=== PATIENT | female | born 1945 | race Caucasian/White ===

== ENCOUNTER 2017-12-18 13:43 | Outpatient (CLI) | payer MEDICARE | END 2017-12-18 13:44 | disposition home or self-care (01) | LOC: BICMAMMO 13:43 | PROVIDERS: ATTEND Internal Medicine Rheumatology | DX: M81.0 Age-related osteoporosis without current pathological fracture (principal) | CPT/HCPCS: 77063; 77067; 77080 ==

== ENCOUNTER 2017-12-27 19:50 | Emergency (ER) | payer MEDICARE ==
--- NOTE | 2017-12-27 20:37 | RAD ---
LEFT HIP: 12/27/17 Two views. HISTORY: Fall with injury to hip. Comparison made to left hip films of 01/16/16. The left hip prosthesis is unchanged from the prior exam. No evidence of loosening. No acute fracture identified. IMPRESSION: No acute abnormality. POS: NILAY
[2017-12-27] MEDS ORDERED: Ondansetron HCl/PF 4 MG/2 ML Vial ONE (22:55)
[2017-12-27] MEDS ORDERED: Morphine 4 MG/ML VIAL ONE (22:56)
--- NOTE | 2017-12-27 23:33 | CT ---
CT LEFT HIP: 12/27/17 Multiple axial tomograms obtained through the left hip with multiplanar reconstruction. HISTORY: Patient well with injury to left hip. Left hip pain. History of left hip replacement. Left hip prosthetic components appear in adequate position and alignment. No evidence of acute fractu re identified. No soft tissue abnormality. Marion artifact from the components degrade the soft tissue windows. IMPRESSION: No acute fracture identified. POS: NILAY
== END 2017-12-27 23:50 | disposition home or self-care (01) ==
LOC: ERS 19:50
DX: S70.02XA Contusion of left hip, initial encounter (principal); I10 Essential (primary) hypertension; Z87.891 Personal history of nicotine dependence; W01.0XXA Fall on same level from slipping, tripping and stumbling without subsequent striking against object, initial encounter
CPT/HCPCS: 96374; 96375; J2270; J2405

== ENCOUNTER 2018-05-01 16:33 | Outpatient (CLI) | payer MEDICARE | END 2018-05-01 16:34 | disposition home or self-care (01) | LOC: BICRAD 16:33 | PROVIDERS: ATTEND Specialist | DX: J44.9 Chronic obstructive pulmonary disease, unspecified (principal) | CPT/HCPCS: 71046 ==

== ENCOUNTER 2019-01-25 13:14 | Outpatient (CLI) | payer MEDICARE ==
--- NOTE | 2019-01-25 14:20 | MMO ---
Bilateral MAMMO Bilat Screen [facility]. CLINICAL HISTORY: Patient is 73 years old and is seen for screening. The patient has the following family history of breast cancer: mother. The patient has no personal history of cancer. VIEWS: The views performed were: bilateral craniocaudal with tomosynthesis; bilateral mediolateral oblique with tomosynthesis; and bilateral exaggerated craniocaudal. FILMS COMPARED: The present examination has been compared to prior imaging studies performed at [facility] on 09/07/2004, 09/13/2004, 05/31/2005, 08/10/2011, 08/10/2012, 08/30/2013, 09/04/2014, 06/11/2015, 10/13/2015, 12/13/2016 and 12/18/2017, and at [facility] on 08/11/1997 and 10/22/1998. MAMMOGRAM FINDINGS: The breasts are extremely dense, which may lower the sensitivity of mammography. There are stable benign appearing calcifications seen in both breasts. There are no suspicious masses, suspicious calcifications, or new areas of architectural distortion. IMPRESSION: THERE IS NO MAMMOGRAPHIC EVIDENCE OF MALIGNANCY. A ROUTINE FOLLOW-UP MAMMOGRAM IN 1 YEAR IS RECOMMENDED. THE RESULTS OF THIS EXAM WERE SENT TO THE PATIENT. ACR BI-RADS Category 2 - Benign finding MAMMOGRAPHY NOTE: 1. A negative mammogram report should not delay a biopsy if a dominant of clinically suspicious mass is present. 2. Approximately 10% to 15% of breast cancers are not detected by mammography. 3. Adenosis and dense breasts may obscure an underlying neoplasm.
--- NOTE | 2019-01-25 14:20 | BD ---
BONE DENSITOMETRY USING DEXA: Date: 01/25/19 HISTORY: Postmenopausal screening for osteoporosis. FINDINGS: Lumbar Spine: BMD (g/cm2) L1 0.926 T-Score: -0.6 Z-Score: 1.4 L2 0.844 T-Score: -1.7 Z-Score: 0.6 L3 0.996 T-Score: -0.8 Z-Score: 1.6 L4 0.921 T-Score: -1.3 Z-Score: 1.1 L1-L4 0.923 T-Score: -1.1 Z-Score: 1.1 Femoral Neck: 0.458 T-Score: -3.5 Z-Score: -1.6 Total Femur: 0.749 T-Score: -1.6 Z-Score: 0.1 IMPRESSION: Osteoporosis. POS: ERNIE
== END 2019-01-25 13:15 | disposition home or self-care (01) ==
LOC: BICMAMMO 13:14
PROVIDERS: ATTEND Internal Medicine
DX: Z12.31 Encounter for screening mammogram for malignant neoplasm of breast (principal); M85.80 Other specified disorders of bone density and structure, unspecified site; M81.0 Age-related osteoporosis without current pathological fracture; Z80.3 Family history of malignant neoplasm of breast
CPT/HCPCS: 77063; 77067; 77080

== ENCOUNTER 2019-05-24 00:04 | Emergency (ER) | payer MEDICARE ==
[2019-05-24] MEDS ORDERED: Oxymetazoline HCl 0.05% (30 ML BOT) NS SCH (01:00)
[2019-05-24] MEDS ORDERED: Oxymetazoline HCl 0.05% ( 15 ML ) NASAL SCH (01:00)
== END 2019-05-24 01:06 | disposition home or self-care (01) ==
LOC: ERS 00:04
DX: R04.0 Epistaxis (principal); I10 Essential (primary) hypertension; J45.909 Unspecified asthma, uncomplicated; Z87.891 Personal history of nicotine dependence; Z79.899 Other long term (current) drug therapy; Z79.51 Long term (current) use of inhaled steroids
CPT/HCPCS: 99283

== ENCOUNTER 2019-05-30 11:39 | Observation (INO) | payer MEDICARE ==
[2019-05-30 12:15] LABS: #Basophils 0.1 thou/uL (0.0-0.2); #Eosinphils 0.1 thou/uL (0.0-0.7); #Monocytes 0.6 thou/uL (0.11-0.59); #Neutrophils 4.4 thou/uL (1.40-6.50); %Basophils 0.9 % (0.0-1.0); %Eosinophils 1.9 % (0.0-10.0); %Lymphocytes 16.1 % (21.0-51.0); %Monocytes 9.7 % (0.0-10.0); %Neutrophils 71.4 % (42.0-75.0); Hemoglobin 15.1 g/dL (12.0-16.0); Mean Corpuscular Hemoglobin 30.6 pg (27.0-31.0); Mean Corpuscular Volume 92.7 fL (78.0-98.0); Mean Platelet Volume 8.1 fL (7.4-10.4); Platelet Count 220 thou/uL (130-400); RBC Distribution Width 11.7 % (11.5-14.5); Red Blood Cell (RBC) Count 4.93 mill/uL (4.20-5.40); White Blood Cell (WBC) Count 6.2 thou/uL (4.8-10.8)
[2019-05-30] MEDS ORDERED: Aspirin Chewable 81 MG TAB ONE (12:17)
[2019-05-30] MEDS ORDERED: Labetalol HCl 100 MG/20 ML VIAL ONE (12:18)
--- NOTE | 2019-05-30 12:23 | RAD ---
XR Chest 1 View Portable History: Chest pain Comparison: Radiograph 2018 Findings: The lungs are hyperinflated. Mild ectasia of the aorta. Heart size upper limits of normal. No pneumothorax. No consolidation. No acute osseous abnormality. Impression: No acute intrathoracic abnormality.
[2019-05-30 12:41] LABS: ALT (SGPT) 23 U/L (8-55); AST (SGOT) 29 U/L (5-34); Albumin 4.8 g/dL (3.4-4.8); Alkaline Phosphatase 58 U/L (40-150); Anion Gap 11 mmol/L (10-20); BUN (Urea Nitrogen) 15 mg/dL (9.8-20.1); Bilirubin, Total 0.5 mg/dL (0.2-1.2); Calc. Creatinine Clearance 0 mL/min (70-130); Calcium 9.6 mg/dL (7.8-10.44); Carbon Dioxide 30 mmol/L (23-31); Chloride 96 mmol/L (98-107); Estimated GFR-MDRD 70; Globulin 2.8 g/dL (2.4-3.5); Glucose 95 mg/dL (83-110); Lipase 26 U/L (8-78); Potassium 4.1 mmol/L (3.5-5.1); Protein, Total 7.6 g/dL (6.0-8.3); Sodium 133 mmol/L (136-145)
[2019-05-30] MEDS ORDERED: Acetaminophen 500 MG TAB ONE (12:55)
[2019-05-30] MEDS ORDERED: Nitroglycerin 2% Ointment 1 INCH/1 GM Packet ONE (12:55)
[2019-05-30 12:56] LABS: CKMB 6.1 ng/mL (0-6.6)
[2019-05-30] MEDS ORDERED: Ondansetron ODT 4 MG TAB SL PRN (14:50)
[2019-05-30] MEDS ORDERED: Ondansetron PF 4 MG/2 ML Vial IVP PRN (14:50)
[2019-05-30 14:59] VITALS: BMI 19.3
[2019-05-30 15:57] LABS: Troponin I 0.021 ng/mL (< 0.028)
[2019-05-30 18:28] LABS: Troponin I 0.026 ng/mL (< 0.028)
[2019-05-30] MEDS ORDERED: Cyclobenzaprine 10 MG TAB PO PRN (21:00)
[2019-05-30] MEDS ORDERED: Zolpidem Tartrate 5 MG TAB PO PRN (21:12)
[2019-05-30] MEDS ORDERED: Acyclovir 200 mg Capsule PO PRN (21:15)
[2019-05-30] MEDS ORDERED: Losartan 25 MG TAB PO SCH (21:15)
[2019-05-30] MEDS ORDERED: Gabapentin 300 MG CAP PO PRN (21:17)
[2019-05-30] MEDS ORDERED: traMADol HCl 50 MG TAB PO PRN (21:18)
[2019-05-30] MEDS: HYDROcodone/Acetaminophen 5/325 mg Tablet PO PRN (21:42)
[2019-05-30] MEDS: CeleCOXIB 100 MG CAP PO SCH (21:43)
[2019-05-30] MEDS: methylPREDNISolone Sod Succ/PF 125 MG/2 ML VIAL IVP SCH (21:49)
--- NOTE | 2019-05-31 02:34 | HP ---
DATE OF OBSERVATION: 05/30/2019. CHIEF COMPLAINT: Chest pain with abnormal EKG and elevated troponin. HISTORY OF PRESENT ILLNESS: The patient is a 74-year-old female, who for the past week has had difficulty on awakening with a feeling of dyspnea and tenderness in her chest wall anteriorly. She denies any radiation of pain, nausea, or diaphoresis. However, when she came to Dr. Infante' office on day of observation, an EKG was performed which showed possible ischemia in the lateral leads and she was sent to the emergency room for further evaluation. There, in the ER, her troponin level was noted to be elevated and her EKG that was abnormal there as well, necessitating this hospitalization for serial cardiac enzymes, re-evaluation, and stress test. Further risk factors include hypertension and general medical noncompliance. PAST MEDICAL HISTORY: Significant for severe degenerative joint disease, asthma, and hypertension. PAST SURGICAL HISTORY: Includes tonsillectomy, orthopedic surgery on the left hip, hysterectomy. She has had neck surgery and bladder repair. PSYCHIATRIC HISTORY: Negative. SOCIAL HISTORY: She denies alcohol and drug use. She quit smoking greater than 10 years ago and is . ALLERGIES: CEPHALOSPORINS, IODINE, PENICILLINS, AND SULFA. CURRENT MEDICATIONS: Include: 1. Metoprolol succinate 50 mg daily. 2. Symbicort 160/4.5 two puffs b.i.d. 3. She has been prescribed Ultram and Celebrex for her arthritis; the Ultram to be taken daily and the Ultram to be taken only on a spaced out intermittent basis. REVIEW OF SYSTEMS: At the time of admission, CONSTITUTIONAL: Denies fever, chills, or malaise. HEENT: She has a headache but denies drainage from ears, nose, or throat. CHEST: Has chronic shortness of breath and occasional cough. CARDIOVASCULAR: Has anterior chest wall pain, reproducible with palpation, but denies palpitations. GI: No nausea, vomiting, or diarrhea. : No dysuria, blood in urine or stool. MUSCULOSKELETAL: Diffuse aches and pains, especially in her neck. SKIN: No new rashes or lesions. NEUROLOGIC: Positive for headache. No hypesthesias, anesthesias, or unsteady gait. PHYSICAL EXAMINATION: VITAL SIGNS: Blood pressure 164/121, pulse 109, respirations 16, temperature 98.2, pain scale 5/10 with an O2 saturation of 99% on room air. GENERAL: This is a thin female, alert, oriented, cooperative, who looks her stated age. HEENT: Normocephalic and atraumatic. Pupils are equal, round, and reactive to light with arcus senilis bilaterally. TMs, nares, and pharynx are clear. NECK: Supple. Trachea midline. No mass. CHEST: Tender to the anterior wall with pressure. She states this reproduces her chest pain. She has diminished breath sounds throughout. BREASTS: Deferred. HEART: Regular rate and rhythm. No murmur. ABDOMEN: Soft, nontender without hepatosplenomegaly. : Deferred. EXTREMITIES: Without clubbing, cyanosis, or edema. Symmetrical muscular tone development noted in upper and lower extremities. SKIN: Without acute rashes or lesions. NEUROLOGIC: Cranial nerves are intact. Gait and cerebellar function are intact. Sensory exam is intact. Mental status is at baseline and nonfocal. LABORATORY DATA: Lab work thus far shows WBC 6.2, hemoglobin 15.1, hematocrit 45.6 with platelets of 220. Sodium 133, potassium 4.1, chloride 96, CO2 is 30, BUN 15, creatinine 0.8 with a glucose of 95. BNP slightly elevated at 112.6. Troponin initially is 0.036, the remainders are normal. Liver functions are unremarkable. Chest x-ray shows no acute disease. Her blood pressures remained elevated systolically through most of her admission. ASSESSMENT: 1. Chest pain. 2. Costochondritis. 3. Asthma. 4. Hypertension. 5. Degenerative joint disease. PLAN: Plan will be a stress test, serial re-evaluation, neb treatments, Solu-Medrol, and pain management. Job ID: [id number]
[2019-05-31] MEDS: methylPREDNISolone Sod Succ/PF 125 MG/2 ML VIAL IVP SCH ×4 (04:39→21:25)
[2019-05-31 05:09] LABS: Anion Gap 13 mmol/L (10-20); BUN (Urea Nitrogen) 17 mg/dL (9.8-20.1); Calc. Creatinine Clearance 58 mL/min (70-130); Calcium 9.4 mg/dL (7.8-10.44); Carbon Dioxide 24 mmol/L (23-31); Chloride 103 mmol/L (98-107); Estimated GFR-MDRD 75; Glucose 158 mg/dL (83-110); Sodium 136 mmol/L (136-145)
[2019-05-31] MEDS: Budesonide 0.5 MG/2 ML NEB NEB SCH ×2 (06:21→18:06)
[2019-05-31] MEDS: HYDROcodone/Acetaminophen 5/325 mg Tablet PO PRN (08:01)
[2019-05-31] MEDS: Losartan 25 MG TAB PO SCH (11:43)
[2019-05-31] MEDS: Cyanocobalamin (Vitamin B-12) 1,000 MCG TAB PO SCH (11:43)
[2019-05-31] MEDS: Multivitamin W/ Minerals 1 TAB PO SCH (11:43)
[2019-05-31] MEDS: Vitamin E 400 UNITS CAP PO SCH ×2 (11:43→21:24)
[2019-05-31] MEDS: Stress 600 With Zinc 1 TAB PO SCH (11:44)
[2019-05-31] MEDS: Calcium Carbonate 600 MG TAB PO SCH ×2 (11:44→21:24)
--- NOTE | 2019-05-31 11:49 | NM ---
Radionucleotide stress and rest perfusion scan with CT attenuation correction and SPECT imaging Left ventricular wall motion evaluation and ejection fraction HISTORY: Chest pain. FINDINGS: Lexiscan protocol. There is homogeneous uptake of radiotracer throughout the left ventricular myocardium without focal p erfusion defect or reversibility. QGS analysis of gated SPECT images shows questionable dyskinesis of the lateral wall base. Ejection fraction normal at 71%. IMPRESSION: Normal myocardial perfusion scan. Normal LVEF.
--- NOTE | 2019-05-31 13:30 | STRESS ---
Acquisition Time: 2019-05-31 09:59:56 Total Exercise Time: 00:01:00 Test Indications: CHEST PAIN Medications: Protocol: LEXISCAN Max HR: 141 BPM 95% of Pred: 147 BPM Max BP: 140/082 mmHG Max Work Load: 1.0 METS RESTING ECG: NORMAL SINUS RHYTHM AT 93 BPM WITH RUNS OF SVT AT 150 BPM SYMPTOMS: DYSPNEA NORMAL BP RESPONSE ECTOPY: NONE ECG STRESS: NO SIGNIFICANT CHANGES INTERPRETATION: AWAIT NUCLEAR IMAGES FOR DEFINITIVE DIAGNOSIS Confirmed by BILL CHRISTIANSEN ([id number]), supervising film or videotape editor ELINA WELSH ([id number]) on 05/31/2019 1:30:13 PM Referred By: MD Nunu NICHOLSON Confirmed By:BILL CHRISTIANSEN
[2019-05-31] MEDS ORDERED: Regadenoson 0.4 MG/5 ML SYRINGE ONE (15:03)
[2019-05-31] MEDS: CeleCOXIB 100 MG CAP PO SCH (21:24)
[2019-06-01] MEDS: methylPREDNISolone Sod Succ/PF 125 MG/2 ML VIAL IVP SCH (03:48)
[2019-06-01] MEDS: Budesonide 0.5 MG/2 ML NEB NEB SCH (07:18)
[2019-06-01] MEDS: Cyanocobalamin (Vitamin B-12) 1,000 MCG TAB PO SCH (08:12)
[2019-06-01] MEDS: Calcium Carbonate 600 MG TAB PO SCH (08:14)
[2019-06-01] MEDS: Multivitamin W/ Minerals 1 TAB PO SCH (08:14)
[2019-06-01] MEDS: Losartan 25 MG TAB PO SCH (08:14)
[2019-06-01] MEDS: Vitamin E 400 UNITS CAP PO SCH (08:14)
[2019-06-01] MEDS: Stress 600 With Zinc 1 TAB PO SCH (08:14)
[2019-06-01 08:27] VITALS: BP 157/95; TEMP 97.3
== END 2019-06-01 09:46 | disposition home or self-care (01) ==
LOC: ERS 11:39 → 2SW 14:47
PROVIDERS: ADMIT Specialist; ATTEND Specialist
DX: M94.0 Chondrocostal junction syndrome [Tietze] (principal); J45.909 Unspecified asthma, uncomplicated; I10 Essential (primary) hypertension; M19.90 Unspecified osteoarthritis, unspecified site; Z87.891 Personal history of nicotine dependence; Z88.1 Allergy status to other antibiotic agents; Z91.041 Radiographic dye allergy status; Z88.0 Allergy status to penicillin; Z88.2 Allergy status to sulfonamides; Z79.899 Other long term (current) drug therapy
CPT/HCPCS: 71045; 78452; 80048; 80053; 82553; 83690; 83880; 84484 ×2; 85025; 93005; 93017; 94640 ×3; 96374; 96375; 96376 ×2; 99285; A9500; G0378 ×4; 36415; J2785; J2930; J7620; J7626

== ENCOUNTER 2020-04-01 14:38 | Outpatient (CLI) | payer MEDICARE ==
--- NOTE | 2020-04-01 16:16 | MMO ---
Bilateral MAMMO Bilat Screen [facility]. CLINICAL HISTORY: Patient is 74 years old and is seen for screening. The patient has the following family history of breast cancer: mother. The patient has no personal history of cancer. VIEWS: The views performed were: bilateral craniocaudal with tomosynthesis and bilateral mediolateral oblique with tomosynthesis. FILMS COMPARED: The present examination has been compared to prior imaging studies performed at [facility] on 10/13/2015, 12/13/2016, 12/18/2017 and 01/25/2019. This study has been interpreted with the assistance of computer-aided detection. MAMMOGRAM FINDINGS: The breasts are extremely dense, which may lower the sensitivity of mammography. Benign calcifications are noted bilaterally. There are no suspicious masses, suspicious calcifications, or new areas of architectural distortion. IMPRESSION: THERE IS NO MAMMOGRAPHIC EVIDENCE OF MALIGNANCY. A ROUTINE FOLLOW-UP MAMMOGRAM IN 1 YEAR IS RECOMMENDED. THE RESULTS OF THIS EXAM WERE SENT TO THE PATIENT. ACR BI-RADS Category 2 - Benign finding MAMMOGRAPHY NOTE: 1. A negative mammogram report should not delay a biopsy if a dominant of clinically suspicious mass is present. 2. Approximately 10% to 15% of breast cancers are not detected by mammography. 3. Adenosis and dense breasts may obscure an underlying neoplasm. Reported by: SHERRI CHAUDHARY MD Electonically Signed: [id number]
== END 2020-04-01 14:39 | disposition home or self-care (01) ==
LOC: BICMAMMO 14:38
PROVIDERS: ATTEND Specialist
DX: Z12.31 Encounter for screening mammogram for malignant neoplasm of breast (principal); Z80.3 Family history of malignant neoplasm of breast
CPT/HCPCS: 77063; 77067

== ENCOUNTER 2021-03-03 15:35 | Inpatient (IN) | payer OTHER, MEDICARE ==
[2021-03-03 16:17] LABS: #Eosinphils 0.2 thou/uL (0.0-0.7); #Lymphocytes 0.9 thou/uL (1.20-3.40); #Monocytes 0.6 thou/uL (0.11-0.59); #Neutrophils 4.6 thou/uL (1.40-6.50); %Basophils 0.2 % (0.0-1.0); %Eosinophils 2.9 % (0.0-10.0); %Lymphocytes 13.8 % (21.0-51.0); %Monocytes 10.2 % (0.0-10.0); %Neutrophils 72.9 % (42.0-75.0); Hemoglobin 13.7 g/dL (12.0-16.0); Mean Corpuscular HGB CONC 33.4 g/dL (32.0-36.0); Mean Corpuscular Hemoglobin 32.2 pg (27.0-31.0); Mean Corpuscular Volume 96.4 fL (78.0-98.0); Mean Platelet Volume 8.2 fL (7.4-10.4); Platelet Count 200 thou/uL (130-400); RBC Distribution Width 11.9 % (11.5-14.5); Red Blood Cell (RBC) Count 4.26 mill/uL (4.20-5.40); White Blood Cell (WBC) Count 6.3 thou/uL (4.8-10.8)
[2021-03-03] MEDS ORDERED: Ketorolac Tromethamine 30 MG/ML VIAL ONE (16:33)
[2021-03-03] MEDS ORDERED: HYDROmorphone 0.5 MG/0.5 ML SYRINGE ONE ×3 (16:33→19:11)
[2021-03-03 16:41] LABS: ALT (SGPT) 19 U/L (8-55); AST (SGOT) 24 U/L (5-34); Albumin 4.1 g/dL (3.4-4.8); Alkaline Phosphatase 63 U/L (40-110); Anion Gap 12 mmol/L (10-20); BUN (Urea Nitrogen) 23 mg/dL (9.8-20.1); Bilirubin, Total 0.4 mg/dL (0.2-1.2); Calc. Creatinine Clearance 0 mL/min (70-130); Calcium 9.1 mg/dL (7.8-10.44); Carbon Dioxide 26 mmol/L (23-31); Chloride 98 mmol/L (98-107); Globulin 2.4 g/dL (2.4-3.5); Glucose 96 mg/dL (83-110); Potassium 3.9 mmol/L (3.5-5.1); Protein, Total 6.5 g/dL (5.8-8.1); Sodium 132 mmol/L (136-145)
[2021-03-03] MEDS ORDERED: Midazolam HCl 2 mg/2 ml Vial ONE (17:16)
[2021-03-03] MEDS ORDERED: Dextrose 5% in Water 1,000 ML IV PRN ×2 (17:44→18:31)
[2021-03-03] MEDS ORDERED: Dextrose 50% Abboject 50 ML SYRINGE SLOW IVP PRN ×2 (17:44→18:31)
[2021-03-03] MEDS ORDERED: hydrALAZINE 20 MG/ML VIAL SLOW IVP PRN (17:44)
[2021-03-03] MEDS ORDERED: Ondansetron PF 4 MG/2 ML Vial IVP PRN (17:44)
[2021-03-03] MEDS ORDERED: Acyclovir 200 mg Capsule PO PRN (17:50)
[2021-03-03] MEDS: traMADol HCl 50 MG TAB PO SCH ×2 (21:33→23:32)
[2021-03-03] MEDS: Sodium Chloride 0.9% 1,000 ML IV SCH (21:34)
[2021-03-03] MEDS: Gabapentin 300 MG CAP PO PRN (21:35)
[2021-03-03] MEDS: Famotidine/PF 20 mg/2ml Vial SLOW IVP SCH (21:36)
[2021-03-03] MEDS: Calcium Carbonate 600 MG TAB PO SCH (21:36)
[2021-03-03 21:47] VITALS: BMI 18.8
[2021-03-03] MEDS: Morphine 4 MG/ML VIAL SLOW IVP PRN (22:07)
[2021-03-04 01:01] LABS: SARS-CoV-2 NAA Rapid Test Not Detected (NotDetected)
[2021-03-04 01:55] LABS: #Basophils 0.1 thou/uL (0.0-0.2); #Eosinphils 0.2 thou/uL (0.0-0.7); #Monocytes 0.7 thou/uL (0.11-0.59); #Neutrophils 4.2 thou/uL (1.40-6.50); %Basophils 0.9 % (0.0-1.0); %Eosinophils 2.7 % (0.0-10.0); %Lymphocytes 16.5 % (21.0-51.0); %Monocytes 11.9 % (0.0-10.0); %Neutrophils 67.9 % (42.0-75.0); Hemoglobin 12.6 g/dL (12.0-16.0); Mean Corpuscular HGB CONC 34.1 g/dL (32.0-36.0); Mean Corpuscular Hemoglobin 32.8 pg (27.0-31.0); Mean Corpuscular Volume 96.3 fL (78.0-98.0); Mean Platelet Volume 7.9 fL (7.4-10.4); Platelet Count 148 thou/uL (130-400); RBC Distribution Width 11.8 % (11.5-14.5); Red Blood Cell (RBC) Count 3.85 mill/uL (4.20-5.40); White Blood Cell (WBC) Count 6.2 thou/uL (4.8-10.8)
[2021-03-04 02:07] LABS: Prothrombin Time 13.2 sec (12.0-14.7)
[2021-03-04 02:08] LABS: PTT 34.3 sec (22.9-36.1)
[2021-03-04 02:19] LABS: Troponin I 0.023 ng/mL (< 0.028)
[2021-03-04 02:24] LABS: Anion Gap 10 mmol/L (10-20); BUN (Urea Nitrogen) 16 mg/dL (9.8-20.1); Calc. Creatinine Clearance 55 mL/min (70-130); Calcium 8.5 mg/dL (7.8-10.44); Carbon Dioxide 28 mmol/L (23-31); Chloride 102 mmol/L (98-107); Glucose 102 mg/dL (83-110); Potassium 3.7 mmol/L (3.5-5.1); Sodium 136 mmol/L (136-145)
[2021-03-04] MEDS: traMADol HCl 50 MG TAB PO SCH ×3 (05:34→17:38)
[2021-03-04] MEDS: Morphine 4 MG/ML VIAL SLOW IVP PRN ×3 (05:41→17:37)
[2021-03-04] MEDS ORDERED: Clindamycin/D5W 900 MG in Premix Bag 1 BAG IVPB SCH (08:00)
[2021-03-04] MEDS: Calcium Carbonate 600 MG TAB PO SCH ×2 (08:01→20:39)
[2021-03-04] MEDS: Cholecalciferol 1,000 UNITS (25 MCG) TAB PO SCH (08:01)
[2021-03-04] MEDS: Polyethylene Glycol 3350 17 GM Packet PO SCH (08:02)
[2021-03-04] MEDS: Famotidine/PF 20 mg/2ml Vial SLOW IVP SCH ×2 (08:02→21:30)
[2021-03-04] MEDS: Sodium Chloride 0.9% 1,000 ML IV SCH ×2 (08:11→20:30)
[2021-03-04] MEDS: Senokot S 8.6-50 MG TAB PO SCH ×2 (08:11→20:39)
[2021-03-04] MEDS: CYANOCOBALAMIN 5000 MCG SL SCH (09:59)
[2021-03-04] MEDS ORDERED: Clindamycin/D5W 900 mg/50 ml Premix Bag ONE (12:14)
[2021-03-04] MEDS ORDERED: Midazolam HCl 2 mg/2 ml Vial ONE (12:47)
[2021-03-04] MEDS ORDERED: Fentanyl 100 MCG/2 ML VIAL ONE (12:47)
[2021-03-04] MEDS ORDERED: Ondansetron PF 4 MG/2 ML Vial ONE ×2 (13:46→16:50)
[2021-03-04] MEDS ORDERED: Lidocaine 1% PF 5 ML VIAL ONE (13:46)
[2021-03-04] MEDS ORDERED: Dexamethasone 20 MG/5 ML VIAL ONE (13:46)
[2021-03-04] MEDS ORDERED: Bupivacaine HCl 0.5%/Epinephrine 1:200,000/PF 30 ml Vial ONE (13:46)
[2021-03-04] MEDS ORDERED: PROPOFOL 200 MG/20 ML VIAL ONE (13:46)
[2021-03-04] MEDS ORDERED: Promethazine HCl 25 MG/ML VIAL SLOW IVP PRN (15:31)
[2021-03-04] MEDS ORDERED: Promethazine HCl 25 MG/ML VIAL IM PRN (15:31)
[2021-03-04] MEDS ORDERED: Ondansetron HCl/PF 4 MG/2 ML Vial IVP PRN (15:31)
[2021-03-04] MEDS: Gabapentin 300 MG CAP PO PRN (20:39)
[2021-03-04] MEDS: Clindamycin/D5W 900 MG in Premix Bag 1 BAG IVPB SCH (22:00)
[2021-03-05] MEDS: traMADol HCl 50 MG TAB PO SCH (00:48)
[2021-03-05] MEDS ORDERED: traMADol HCl 50 MG TAB PO PRN ×2 (01:19→23:55)
[2021-03-05] MEDS: Acetaminophen 500 MG TAB PO SCH ×4 (01:26→20:34)
[2021-03-05] MEDS: Ibuprofen 600 MG TAB PO SCH ×3 (01:27→16:51)
[2021-03-05] MEDS ORDERED: Morphine 2 MG/ML VIAL SLOW IVP SCH (01:30)
[2021-03-05 05:48] LABS: #Lymphocytes 0.7 thou/uL (1.20-3.40); #Monocytes 0.9 thou/uL (0.11-0.59); #Neutrophils 8.2 thou/uL (1.40-6.50); %Basophils 0.1 % (0.0-1.0); %Eosinophils 0.2 % (0.0-10.0); %Lymphocytes 7.2 % (21.0-51.0); %Monocytes 9.5 % (0.0-10.0); %Neutrophils 82.9 % (42.0-75.0); Hemoglobin 12.8 g/dL (12.0-16.0); Mean Corpuscular HGB CONC 33.4 g/dL (32.0-36.0); Mean Corpuscular Hemoglobin 32.2 pg (27.0-31.0); Mean Corpuscular Volume 96.5 fL (78.0-98.0); Platelet Count 159 thou/uL (130-400); RBC Distribution Width 11.5 % (11.5-14.5); Red Blood Cell (RBC) Count 3.97 mill/uL (4.20-5.40); White Blood Cell (WBC) Count 9.9 thou/uL (4.8-10.8)
[2021-03-05] MEDS ORDERED: traMADol HCl 50 MG TAB PO SCH (06:00)
[2021-03-05] MEDS: Clindamycin/D5W 900 MG in Premix Bag 1 BAG IVPB SCH ×2 (06:32→14:10)
[2021-03-05] MEDS: Cyclobenzaprine 10 MG TAB PO PRN ×2 (08:27→16:55)
[2021-03-05] MEDS: Senokot S 8.6-50 MG TAB PO SCH ×2 (08:28→20:34)
[2021-03-05] MEDS: Famotidine/PF 20 mg/2ml Vial SLOW IVP SCH ×2 (08:28→20:36)
[2021-03-05] MEDS: Cholecalciferol 1,000 UNITS (25 MCG) TAB PO SCH (08:28)
[2021-03-05] MEDS: Calcium Carbonate 600 MG TAB PO SCH ×2 (08:29→20:36)
[2021-03-05] MEDS: Polyethylene Glycol 3350 17 GM Packet PO SCH (08:29)
[2021-03-05] MEDS: Sodium Chloride 0.9% 1,000 ML IV SCH (08:30)
[2021-03-05] MEDS ORDERED: Cyanocobalamin (Vitamin B-12) 1,000 MCG TAB PO SCH (09:30)
[2021-03-05] MEDS: CYANOCOBALAMIN 5000 MCG SL SCH (09:32)
[2021-03-05] MEDS: Gabapentin 300 MG CAP PO PRN (21:38)
[2021-03-06] MEDS ORDERED: traMADol HCl 50 MG TAB PO SCH (00:15)
[2021-03-06] MEDS: Cyclobenzaprine 10 MG TAB PO PRN ×2 (01:35→23:26)
[2021-03-06] MEDS: Acetaminophen 500 MG TAB PO SCH ×4 (01:35→18:24)
[2021-03-06] MEDS: Ibuprofen 600 MG TAB PO SCH ×3 (01:36→19:27)
[2021-03-06 06:01] LABS: #Eosinphils 0.2 thou/uL (0.0-0.7); #Lymphocytes 0.9 thou/uL (1.20-3.40); #Monocytes 0.7 thou/uL (0.11-0.59); #Neutrophils 4.6 thou/uL (1.40-6.50); %Basophils 0.7 % (0.0-1.0); %Eosinophils 3.1 % (0.0-10.0); %Lymphocytes 13.3 % (21.0-51.0); %Monocytes 11.3 % (0.0-10.0); %Neutrophils 71.6 % (42.0-75.0); Hemoglobin 12.2 g/dL (12.0-16.0); Mean Corpuscular Hemoglobin 32.8 pg (27.0-31.0); Mean Corpuscular Volume 96.3 fL (78.0-98.0); Mean Platelet Volume 8.5 fL (7.4-10.4); Platelet Count 149 thou/uL (130-400); RBC Distribution Width 11.8 % (11.5-14.5); Red Blood Cell (RBC) Count 3.74 mill/uL (4.20-5.40); White Blood Cell (WBC) Count 6.4 thou/uL (4.8-10.8)
[2021-03-06] MEDS: traMADol HCl 50 MG TAB PO SCH ×4 (06:15→23:25)
[2021-03-06] MEDS: Cyanocobalamin (Vitamin B-12) 1,000 MCG TAB PO SCH (09:28)
[2021-03-06] MEDS: Senokot S 8.6-50 MG TAB PO SCH ×2 (09:28→20:05)
[2021-03-06] MEDS: Calcium Carbonate 600 MG TAB PO SCH ×2 (09:28→19:51)
[2021-03-06] MEDS: Cholecalciferol 1,000 UNITS (25 MCG) TAB PO SCH (09:30)
[2021-03-06] MEDS: Famotidine/PF 20 mg/2ml Vial SLOW IVP SCH ×2 (09:30→19:51)
[2021-03-06] MEDS: Polyethylene Glycol 3350 17 GM Packet PO SCH (09:31)
[2021-03-07] MEDS: Ibuprofen 600 MG TAB PO SCH ×3 (01:48→18:29)
[2021-03-07] MEDS: Acetaminophen 500 MG TAB PO SCH ×4 (01:49→19:50)
[2021-03-07 05:05] LABS: #Basophils 0.1 thou/uL (0.0-0.2); #Eosinphils 0.2 thou/uL (0.0-0.7); #Lymphocytes 0.9 thou/uL (1.20-3.40); #Monocytes 0.8 thou/uL (0.11-0.59); #Neutrophils 5.3 thou/uL (1.40-6.50); %Basophils 0.8 % (0.0-1.0); %Eosinophils 3.2 % (0.0-10.0); %Lymphocytes 11.9 % (21.0-51.0); %Monocytes 11.6 % (0.0-10.0); %Neutrophils 72.5 % (42.0-75.0); Hemoglobin 12.1 g/dL (12.0-16.0); Mean Corpuscular HGB CONC 34.3 g/dL (32.0-36.0); Mean Corpuscular Hemoglobin 33.5 pg (27.0-31.0); Mean Corpuscular Volume 97.7 fL (78.0-98.0); Mean Platelet Volume 8.5 fL (7.4-10.4); Platelet Count 155 thou/uL (130-400); RBC Distribution Width 11.5 % (11.5-14.5); White Blood Cell (WBC) Count 7.3 thou/uL (4.8-10.8)
[2021-03-07] MEDS: traMADol HCl 50 MG TAB PO SCH ×3 (06:09→18:27)
[2021-03-07] MEDS: Polyethylene Glycol 3350 17 GM Packet PO SCH (09:29)
[2021-03-07] MEDS: Calcium Carbonate 600 MG TAB PO SCH ×2 (09:29→19:51)
[2021-03-07] MEDS: Senokot S 8.6-50 MG TAB PO SCH ×2 (09:29→19:51)
[2021-03-07] MEDS: Famotidine/PF 20 mg/2ml Vial SLOW IVP SCH ×2 (09:30→19:51)
[2021-03-07] MEDS: Cyanocobalamin (Vitamin B-12) 1,000 MCG TAB PO SCH (09:31)
[2021-03-07] MEDS: Cholecalciferol 1,000 UNITS (25 MCG) TAB PO SCH (09:32)
[2021-03-08] MEDS: Cyclobenzaprine 10 MG TAB PO PRN (01:07)
[2021-03-08] MEDS: Acetaminophen 500 MG TAB PO SCH ×3 (01:07→14:33)
[2021-03-08] MEDS: Ibuprofen 600 MG TAB PO SCH ×2 (01:07→12:22)
[2021-03-08] MEDS: traMADol HCl 50 MG TAB PO SCH ×4 (01:41→12:22)
[2021-03-08] MEDS: Calcium Carbonate 600 MG TAB PO SCH (08:35)
[2021-03-08] MEDS: Senokot S 8.6-50 MG TAB PO SCH (08:35)
[2021-03-08] MEDS: Cyanocobalamin (Vitamin B-12) 1,000 MCG TAB PO SCH (08:36)
[2021-03-08] MEDS: Cholecalciferol 1,000 UNITS (25 MCG) TAB PO SCH (08:39)
[2021-03-08] MEDS: Polyethylene Glycol 3350 17 GM Packet PO SCH (08:50)
[2021-03-08] MEDS ORDERED: Aspirin 81 mg Enteric Coated Tablet PO SCH (09:00)
[2021-03-08 11:49] VITALS: BP 160/89; TEMP 98.7
== END 2021-03-08 14:36 | disposition swing bed (61) | DRG 493 ==
LOC: ERS 15:35 → SJJU 17:49
PROVIDERS: ADMIT Surgery; ATTEND Surgery
PROC: 0QSH04Z Reposition Left Tibia with Internal Fixation Device, Open Approach (ICD-10-PCS; principal; 2021-03-04)
DX: S82.142A Displaced bicondylar fracture of left tibia, initial encounter for closed fracture (principal); E87.1 Hypo-osmolality and hyponatremia; Z20.822 Contact with and (suspected) exposure to COVID-19; W01.0XXA Fall on same level from slipping, tripping and stumbling without subsequent striking against object, initial encounter; M81.0 Age-related osteoporosis without current pathological fracture; I10 Essential (primary) hypertension; J45.909 Unspecified asthma, uncomplicated; M54.9 Dorsalgia, unspecified; G89.29 Other chronic pain; Z88.0 Allergy status to penicillin; Z88.1 Allergy status to other antibiotic agents; Z88.2 Allergy status to sulfonamides; Z91.041 Radiographic dye allergy status; Z79.899 Other long term (current) drug therapy; Z79.51 Long term (current) use of inhaled steroids; Z90.710 Acquired absence of both cervix and uterus; Z98.890 Other specified postprocedural states; Z87.891 Personal history of nicotine dependence
CPT/HCPCS: 36415; 36416; 71045; 76000; 80048; 80053; 84484; 85025; 85610; 85730; 93005; 94760; 96374; 96375; 96376; C1713; G0390; J0360; J1100; J1170; J1885; J2250; J2270; J2405; J2704; J3010; J3490; S0028; U0002; U0005

== ENCOUNTER 2021-07-08 15:31 | Outpatient (CLI) | payer MEDICARE | END 2021-07-08 15:32 | disposition home or self-care (01) | LOC: BICMRI 15:31 → MRI 15:32 | PROVIDERS: ATTEND Nurse Practitioner Family | DX: M47.26 Other spondylosis with radiculopathy, lumbar region (principal); S32.010A Wedge compression fracture of first lumbar vertebra, initial encounter for closed fracture; R29.890 Loss of height; S32.049A Unspecified fracture of fourth lumbar vertebra, initial encounter for closed fracture | CPT/HCPCS: 72110; 72148 ==

== ENCOUNTER 2021-09-28 13:57 | Outpatient (CLI) | payer MEDICARE | END 2021-09-28 13:58 | disposition home or self-care (01) | LOC: BICMAMMO 13:57 | PROVIDERS: ATTEND Specialist | DX: Z12.31 Encounter for screening mammogram for malignant neoplasm of breast (principal); Z80.3 Family history of malignant neoplasm of breast | CPT/HCPCS: 77063; 77067 ==

== ENCOUNTER 2023-08-22 01:14 | Inpatient (IN) | payer OTHER ==
[2023-08-22] MEDS ORDERED: Morphine 4 MG/ML VIAL ONE ×2 (01:43→05:37)
[2023-08-22] MEDS ORDERED: Ondansetron PF 4 MG/2 ML Vial ONE (01:43)
[2023-08-22 03:09] LABS: #Monocytes 0.5 thou/uL (0.11-0.59); #Neutrophils 7.5 thou/uL (1.40-6.50); %Basophils 0.2 % (0.0-1.0); %Lymphocytes 6.7 % (21.0-51.0); %Neutrophils 86.8 % (42.0-75.0); Hematocrit 40.3 % (36.0-47.0); Hemoglobin 13.5 g/dL (12.0-16.0); Mean Corpuscular HGB CONC 33.5 g/dL (32.0-36.0); Mean Corpuscular Hemoglobin 31.7 pg (27.0-31.0); Mean Corpuscular Volume 94.6 fl (78.0-98.0); Mean Platelet Volume 10.4 fL (7.4-10.4); Platelet Count 192 10x3/uL (130-400); RBC Distribution Width 12.3 % (11.5-14.5); Red Blood Cell (RBC) Count 4.26 mill/uL (4.20-5.40); White Blood Cell (WBC) Count 8.6 10x3/uL (4.8-10.8)
[2023-08-22 03:32] LABS: ALT (SGPT) 22 U/L (8-55); AST (SGOT) 23 U/L (5-34); Albumin 4.5 g/dL (3.4-4.8); Alkaline Phosphatase 62 U/L (40-110); Anion Gap 14 mmol/L (10-20); BUN (Urea Nitrogen) 18 mg/dL (9.8-20.1); Bilirubin, Total 0.4 mg/dL (0.2-1.2); Calc. Creatinine Clearance 0 mL/min (70-130); Calcium 9.5 mg/dL (7.8-10.44); Carbon Dioxide 27 mmol/L (23-31); Chloride 103 mmol/L (98-107); Estimated GFR 78; Globulin 2.5 g/dL (2.4-3.5); Glucose 89 mg/dL (83-110); Potassium 4.2 mmol/L (3.5-5.1); Sodium 140 mmol/L (136-145)
[2023-08-22] MEDS ORDERED: Morphine 4 MG/ML VIAL SLOW IVP PRN (06:02)
[2023-08-22] MEDS ORDERED: Ondansetron ODT 4 MG TAB SL PRN (06:15)
[2023-08-22] MEDS ORDERED: Acetaminophen 325 MG TAB PO PRN (06:36)
[2023-08-22] MEDS: traMADol HCl 50 MG TAB PO PRN (09:44)
[2023-08-22 10:16] VITALS: BMI 18.5
[2023-08-22] MEDS: Ondansetron PF 4 MG/2 ML Vial IVP PRN (11:38)
[2023-08-22] MEDS ORDERED: Prochlorperazine Edisylate 10 MG in Sodium Chloride 0.9% 50 ML IVPB SCH (14:30)
[2023-08-22] MEDS: Acetaminophen 500 MG TAB PO SCH ×2 (15:14→19:51)
[2023-08-22] MEDS: Lidocaine 4% Patch TD SCH (15:46)
[2023-08-22] MEDS: Aspirin 81 mg Enteric Coated Tablet PO SCH (19:51)
[2023-08-22] MEDS: Transdermal Patch Removal TOP SCH (19:53)
[2023-08-23] MEDS: Acetaminophen 500 MG TAB PO SCH ×5 (02:50→20:39)
[2023-08-23 07:50] LABS: #Eosinphils 0.1 thou/uL (0.0-0.7); #Monocytes 0.6 thou/uL (0.11-0.59); #Neutrophils 5.5 thou/uL (1.40-6.50); %Basophils 0.6 % (0.0-1.0); %Lymphocytes 10.3 % (21.0-51.0); %Monocytes 8.6 % (0.0-10.0); %Neutrophils 78.1 % (42.0-75.0); Hematocrit 42.7 % (36.0-47.0); Hemoglobin 14.2 g/dL (12.0-16.0); Mean Corpuscular HGB CONC 33.3 g/dL (32.0-36.0); Mean Corpuscular Hemoglobin 31.8 pg (27.0-31.0); Mean Corpuscular Volume 95.7 fl (78.0-98.0); Mean Platelet Volume 10.9 fL (7.4-10.4); Platelet Count 183 10x3/uL (130-400); RBC Distribution Width 12.3 % (11.5-14.5); Red Blood Cell (RBC) Count 4.46 mill/uL (4.20-5.40)
[2023-08-23 08:19] LABS: ALT (SGPT) 17 U/L (8-55); AST (SGOT) 19 U/L (5-34); Albumin 4.3 g/dL (3.4-4.8); Alkaline Phosphatase 52 U/L (40-110); Anion Gap 13 mmol/L (10-20); BUN (Urea Nitrogen) 13 mg/dL (9.8-20.1); Bilirubin, Total 0.7 mg/dL (0.2-1.2); Calc. Creatinine Clearance 52 mL/min (70-130); Calcium 9.6 mg/dL (7.8-10.44); Carbon Dioxide 29 mmol/L (23-31); Chloride 99 mmol/L (98-107); Estimated GFR 83; Globulin 2.4 g/dL (2.4-3.5); Glucose 94 mg/dL (83-110); Magnesium 1.9 mg/dL (1.6-2.6); Potassium 3.6 mmol/L (3.5-5.1); Protein, Total 6.7 g/dL (5.8-8.1); Sodium 137 mmol/L (136-145)
[2023-08-23] MEDS ORDERED: Non-Formulary Item 1 EACH (Lidocaine 5% Patch [Lidoderm 5% Patch] 1 PATCH Patch) TD SCH (09:00)
[2023-08-23] MEDS: Aspirin 81 mg Enteric Coated Tablet PO SCH ×2 (09:06→20:41)
[2023-08-23] MEDS: traMADol HCl 50 MG TAB PO PRN ×3 (09:07→23:07)
[2023-08-23] MEDS: Lidocaine 4% Patch TD SCH (09:08)
[2023-08-23] MEDS: Ondansetron PF 4 MG/2 ML Vial IVP PRN (09:25)
[2023-08-23] MEDS ORDERED: Amlodipine 5 MG TAB PO SCH (09:45)
[2023-08-23] MEDS ORDERED: Potassium Chloride 20 MEQ TAB PO SCH (09:45)
[2023-08-23] MEDS ORDERED: Ketorolac Tromethamine 30 MG/ML VIAL IVP SCH (11:45)
[2023-08-23] MEDS: hydrALAZINE 20 MG/ML VIAL SLOW IVP PRN ×3 (11:50→21:43)
[2023-08-23] MEDS ORDERED: Morphine 4 MG/ML VIAL SLOW IVP SCH (17:30)
[2023-08-23] MEDS ORDERED: hydrALAZINE 20 MG/ML VIAL SLOW IVP SCH ×2 (17:30)
[2023-08-23] MEDS ORDERED: Aspirin 81 mg Enteric Coated Tablet ONE (20:22)
[2023-08-23] MEDS: Amlodipine 5 MG TAB PO SCH (20:43)
[2023-08-23] MEDS: Transdermal Patch Removal TOP SCH (20:44)
[2023-08-24] MEDS: Acetaminophen 500 MG TAB PO SCH ×4 (03:40→19:51)
[2023-08-24] MEDS: hydrALAZINE 20 MG/ML VIAL SLOW IVP PRN (03:42)
[2023-08-24] MEDS: Ondansetron PF 4 MG/2 ML Vial IVP PRN ×2 (03:51→10:43)
[2023-08-24] MEDS: hydrALAZINE 25 MG TAB PO SCH ×2 (08:26→19:52)
[2023-08-24] MEDS: Amlodipine 5 MG TAB PO SCH ×2 (08:26→19:52)
[2023-08-24] MEDS: Lidocaine 4% Patch TD SCH (08:27)
[2023-08-24] MEDS: Aspirin 81 mg Enteric Coated Tablet PO SCH ×2 (08:27→19:51)
[2023-08-24] MEDS: traMADol HCl 50 MG TAB PO PRN ×3 (08:32→21:07)
[2023-08-24] MEDS ORDERED: Amlodipine 5 MG TAB PO SCH (09:00)
[2023-08-24] MEDS: Transdermal Patch Removal TOP SCH (19:52)
[2023-08-25] MEDS: hydrALAZINE 20 MG/ML VIAL SLOW IVP PRN (03:23)
[2023-08-25] MEDS: Acetaminophen 500 MG TAB PO SCH ×4 (03:24→20:48)
[2023-08-25 07:02] LABS: Anion Gap 20 mmol/L (10-20); BUN (Urea Nitrogen) 19 mg/dL (9.8-20.1); Calc. Creatinine Clearance 60 mL/min (70-130); Calcium 8.8 mg/dL (7.8-10.44); Carbon Dioxide 20 mmol/L (23-31); Chloride 89 mmol/L (98-107); Estimated GFR 91; Glucose 108 mg/dL (83-110); Magnesium 3.1 mg/dL (1.6-2.6); Potassium 4.2 mmol/L (3.5-5.1); Sodium 125 mmol/L (136-145)
[2023-08-25] MEDS: Amlodipine 5 MG TAB PO SCH ×2 (09:32→20:47)
[2023-08-25] MEDS: hydrALAZINE 25 MG TAB PO SCH ×2 (09:32→20:47)
[2023-08-25] MEDS: Aspirin 81 mg Enteric Coated Tablet PO SCH ×2 (09:33→20:47)
[2023-08-25] MEDS: Lidocaine 4% Patch TD SCH (09:33)
[2023-08-25 10:03] LABS: Anion Gap 17 mmol/L (10-20); BUN (Urea Nitrogen) 18 mg/dL (9.8-20.1); Calc. Creatinine Clearance 63 mL/min (70-130); Calcium 8.7 mg/dL (7.8-10.44); Carbon Dioxide 25 mmol/L (23-31); Chloride 89 mmol/L (98-107); Estimated GFR 92; Glucose 105 mg/dL (83-110); Magnesium 1.8 mg/dL (1.6-2.6); Potassium 3.9 mmol/L (3.5-5.1); Sodium 127 mmol/L (136-145)
[2023-08-25] MEDS: Sodium Chloride 0.9% 1,000 ML IV SCH (13:43)
[2023-08-25] MEDS: Ondansetron PF 4 MG/2 ML Vial IVP PRN ×2 (13:51→20:46)
[2023-08-25] MEDS: traMADol HCl 50 MG TAB PO PRN (20:45)
[2023-08-25] MEDS: Transdermal Patch Removal TOP SCH (20:48)
[2023-08-26] MEDS: Sodium Chloride 0.9% 1,000 ML IV SCH (02:09)
[2023-08-26] MEDS: Ondansetron PF 4 MG/2 ML Vial IVP PRN ×3 (02:10→20:45)
[2023-08-26] MEDS: Acetaminophen 500 MG TAB PO SCH ×4 (02:10→20:46)
[2023-08-26 06:42] LABS: #Neutrophils 7.2 thou/uL (1.40-6.50); %Basophils 0.3 % (0.0-1.0); %Eosinophils 0.4 % (0.0-10.0); %Lymphocytes 9.3 % (21.0-51.0); %Monocytes 10.7 % (0.0-10.0); %Neutrophils 78.8 % (42.0-75.0); Hemoglobin 15.1 g/dL (12.0-16.0); Mean Corpuscular HGB CONC 35.1 g/dL (32.0-36.0); Mean Corpuscular Hemoglobin 31.9 pg (27.0-31.0); Mean Corpuscular Volume 90.7 fl (78.0-98.0); Mean Platelet Volume 10.8 fL (7.4-10.4); Platelet Count 240 10x3/uL (130-400); RBC Distribution Width 12.3 % (11.5-14.5); Red Blood Cell (RBC) Count 4.74 mill/uL (4.20-5.40); White Blood Cell (WBC) Count 9.1 10x3/uL (4.8-10.8)
[2023-08-26 07:34] LABS: Anion Gap 14 mmol/L (10-20); BUN (Urea Nitrogen) 11 mg/dL (9.8-20.1); Calc. Creatinine Clearance 72 mL/min (70-130); Calcium 8.5 mg/dL (7.8-10.44); Carbon Dioxide 22 mmol/L (23-31); Chloride 92 mmol/L (98-107); Estimated GFR 95; Glucose 116 mg/dL (83-110); Magnesium 1.7 mg/dL (1.6-2.6); Potassium 2.9 mmol/L (3.5-5.1); Sodium 125 mmol/L (136-145)
[2023-08-26] MEDS: Lidocaine 4% Patch TD SCH (08:20)
[2023-08-26] MEDS: Aspirin 81 mg Enteric Coated Tablet PO SCH ×2 (08:21→20:46)
[2023-08-26] MEDS: Amlodipine 5 MG TAB PO SCH ×2 (08:21→20:46)
[2023-08-26] MEDS: hydrALAZINE 25 MG TAB PO SCH ×2 (08:22→20:46)
[2023-08-26] MEDS ORDERED: Potassium Chloride 20 MEQ TAB PO SCH ×2 (11:00→23:45)
[2023-08-26 11:29] LABS: Potassium 3.1 mmol/L (3.5-5.1); Sodium 128 mmol/L (136-145)
[2023-08-26] MEDS: Promethazine HCl 25 MG in Sodium Chloride 0.9% 50 ML IVPB PRN (12:43)
[2023-08-26] MEDS: traMADol HCl 50 MG TAB PO PRN (12:44)
[2023-08-26] MEDS: Potassium Chloride 20 MEQ in Premix 1 BAG IVPB SCH ×4 (13:52→23:49)
[2023-08-26] MEDS ORDERED: Cyclobenzaprine 10 MG TAB PO SCH (14:15)
[2023-08-26 20:39] LABS: Potassium 3.4 mmol/L (3.5-5.1); Sodium 127 mmol/L (136-145)
[2023-08-26] MEDS: Cyclobenzaprine 10 MG TAB PO PRN (20:46)
[2023-08-26] MEDS: Morphine 2 MG/ML VIAL SLOW IVP PRN (20:46)
[2023-08-26] MEDS: Transdermal Patch Removal TOP SCH (20:50)
[2023-08-27] MEDS: Acetaminophen 500 MG TAB PO SCH ×4 (03:13→20:21)
[2023-08-27] MEDS: traMADol HCl 50 MG TAB PO PRN ×2 (04:34→11:50)
[2023-08-27] MEDS: Promethazine HCl 25 MG in Sodium Chloride 0.9% 50 ML IVPB PRN ×2 (05:30→18:08)
[2023-08-27 06:57] LABS: #Eosinphils 0.1 thou/uL (0.0-0.7); #Monocytes 1.2 thou/uL (0.11-0.59); #Neutrophils 6.3 thou/uL (1.40-6.50); %Basophils 0.5 % (0.0-1.0); %Eosinophils 0.8 % (0.0-10.0); %Monocytes 13.9 % (0.0-10.0); %Neutrophils 74.4 % (42.0-75.0); Hematocrit 42.3 % (36.0-47.0); Hemoglobin 14.9 g/dL (12.0-16.0); Mean Corpuscular HGB CONC 35.2 g/dL (32.0-36.0); Mean Corpuscular Hemoglobin 32.1 pg (27.0-31.0); Mean Corpuscular Volume 91.2 fl (78.0-98.0); Mean Platelet Volume 10.6 fL (7.4-10.4); Platelet Count 244 10x3/uL (130-400); RBC Distribution Width 12.4 % (11.5-14.5); Red Blood Cell (RBC) Count 4.64 mill/uL (4.20-5.40); White Blood Cell (WBC) Count 8.5 10x3/uL (4.8-10.8)
[2023-08-27 07:17] LABS: Anion Gap 11 mmol/L (10-20); BUN (Urea Nitrogen) 8 mg/dL (9.8-20.1); Calc. Creatinine Clearance 69 mL/min (70-130); Calcium 8.8 mg/dL (7.8-10.44); Carbon Dioxide 24 mmol/L (23-31); Chloride 98 mmol/L (98-107); Estimated GFR 94; Glucose 105 mg/dL (83-110); Potassium 3.3 mmol/L (3.5-5.1); Sodium 130 mmol/L (136-145)
[2023-08-27] MEDS: Lidocaine 4% Patch TD SCH (09:09)
[2023-08-27] MEDS: Aspirin 81 mg Enteric Coated Tablet PO SCH ×2 (09:09→20:20)
[2023-08-27] MEDS: Cyclobenzaprine 10 MG TAB PO PRN (09:10)
[2023-08-27] MEDS: Amlodipine 5 MG TAB PO SCH ×2 (09:30→20:21)
[2023-08-27] MEDS: hydrALAZINE 25 MG TAB PO SCH ×3 (09:30→20:20)
[2023-08-27] MEDS: Morphine 2 MG/ML VIAL SLOW IVP PRN (15:08)
[2023-08-27] MEDS ORDERED: Potassium Chloride 20 MEQ in Premix 1 BAG IVPB SCH (16:00)
[2023-08-27] MEDS ORDERED: Potassium Chloride 20 MEQ TAB PO SCH (16:30)
[2023-08-27] MEDS: Transdermal Patch Removal TOP SCH (20:22)
[2023-08-28] MEDS: Acetaminophen 500 MG TAB PO SCH ×4 (03:26→20:35)
[2023-08-28] MEDS: traMADol HCl 50 MG TAB PO PRN ×2 (05:43→12:22)
[2023-08-28] MEDS: Promethazine HCl 25 MG in Sodium Chloride 0.9% 50 ML IVPB PRN (05:44)
[2023-08-28] MEDS: Cyclobenzaprine 10 MG TAB PO PRN (05:45)
[2023-08-28] MEDS: Amlodipine 5 MG TAB PO SCH ×2 (08:48→20:34)
[2023-08-28] MEDS: hydrALAZINE 25 MG TAB PO SCH ×3 (08:49→20:36)
[2023-08-28] MEDS: Lidocaine 4% Patch TD SCH (08:50)
[2023-08-28] MEDS: Aspirin 81 mg Enteric Coated Tablet PO SCH ×2 (08:50→20:35)
[2023-08-28 09:11] LABS: #Basophils 0.1 thou/uL (0.0-0.2); #Eosinphils 0.2 thou/uL (0.0-0.7); #Monocytes 1.2 thou/uL (0.11-0.59); #Neutrophils 6.8 thou/uL (1.40-6.50); %Basophils 0.5 % (0.0-1.0); %Eosinophils 1.9 % (0.0-10.0); %Lymphocytes 11.2 % (21.0-51.0); %Monocytes 12.8 % (0.0-10.0); %Neutrophils 73.2 % (42.0-75.0); Mean Corpuscular HGB CONC 34.1 g/dL (32.0-36.0); Mean Corpuscular Hemoglobin 31.3 pg (27.0-31.0); Mean Corpuscular Volume 91.9 fl (78.0-98.0); Mean Platelet Volume 10.5 fL (7.4-10.4); Platelet Count 253 10x3/uL (130-400); RBC Distribution Width 12.4 % (11.5-14.5); Red Blood Cell (RBC) Count 4.79 mill/uL (4.20-5.40); White Blood Cell (WBC) Count 9.3 10x3/uL (4.8-10.8)
[2023-08-28 09:59] LABS: Anion Gap 13 mmol/L (10-20); BUN (Urea Nitrogen) 10 mg/dL (9.8-20.1); Calc. Creatinine Clearance 67 mL/min (70-130); Carbon Dioxide 23 mmol/L (23-31); Chloride 99 mmol/L (98-107); Estimated GFR 93; Glucose 97 mg/dL (83-110); Sodium 131 mmol/L (136-145)
[2023-08-28] MEDS ORDERED: Pantoprazole 40 MG VIAL IVP SCH (13:00)
[2023-08-28] MEDS ORDERED: Magnesium Citrate 300 ML BOT PO SCH (16:00)
[2023-08-28] MEDS: Pantoprazole 40 MG VIAL IVP SCH (20:32)
[2023-08-28] MEDS: Ondansetron PF 4 MG/2 ML Vial IVP PRN (20:32)
[2023-08-28] MEDS: Mirtazapine 15 MG Soltab PO SCH (20:35)
[2023-08-28] MEDS: Transdermal Patch Removal TOP SCH (20:36)
[2023-08-29] MEDS: Acetaminophen 500 MG TAB PO SCH ×4 (02:19→20:30)
[2023-08-29 05:06] LABS: #Basophils 0.1 thou/uL (0.0-0.2); #Eosinphils 0.4 thou/uL (0.0-0.7); #Monocytes 1.1 thou/uL (0.11-0.59); #Neutrophils 8.8 thou/uL (1.40-6.50); %Basophils 0.4 % (0.0-1.0); %Eosinophils 3.5 % (0.0-10.0); %Lymphocytes 8.8 % (21.0-51.0); %Monocytes 9.9 % (0.0-10.0); %Neutrophils 77.1 % (42.0-75.0); Hematocrit 43.2 % (36.0-47.0); Hemoglobin 14.7 g/dL (12.0-16.0); Mean Corpuscular Hemoglobin 31.3 pg (27.0-31.0); Mean Corpuscular Volume 91.9 fl (78.0-98.0); Mean Platelet Volume 10.7 fL (7.4-10.4); Platelet Count 249 10x3/uL (130-400); RBC Distribution Width 12.4 % (11.5-14.5); White Blood Cell (WBC) Count 11.4 10x3/uL (4.8-10.8)
[2023-08-29 05:27] LABS: Anion Gap 12 mmol/L (10-20); BUN (Urea Nitrogen) 14 mg/dL (9.8-20.1); Calc. Creatinine Clearance 58 mL/min (70-130); Calcium 8.8 mg/dL (7.8-10.44); Carbon Dioxide 26 mmol/L (23-31); Chloride 97 mmol/L (98-107); Estimated GFR 90; Glucose 129 mg/dL (83-110); Potassium 3.9 mmol/L (3.5-5.1); Sodium 131 mmol/L (136-145)
[2023-08-29] MEDS ORDERED: Milk Of Magnesia 30 ML UDCUP PO SCH (08:30)
[2023-08-29] MEDS: Pantoprazole 40 MG VIAL IVP SCH ×2 (09:22→20:31)
[2023-08-29] MEDS: Lidocaine 4% Patch TD SCH (09:22)
[2023-08-29] MEDS: hydrALAZINE 25 MG TAB PO SCH ×3 (09:23→20:30)
[2023-08-29] MEDS: Amlodipine 5 MG TAB PO SCH ×2 (09:23→20:29)
[2023-08-29] MEDS: Aspirin 81 mg Enteric Coated Tablet PO SCH ×2 (09:23→20:30)
[2023-08-29] MEDS: Polyethylene Glycol 3350 17 GM Packet PO SCH (09:23)
[2023-08-29] MEDS: Ondansetron PF 4 MG/2 ML Vial IVP PRN ×2 (10:12→20:31)
[2023-08-29] MEDS: traMADol HCl 50 MG TAB PO PRN (15:41)
[2023-08-29] MEDS: Mirtazapine 15 MG Soltab PO SCH (20:29)
[2023-08-29] MEDS: Transdermal Patch Removal TOP SCH (20:32)
[2023-08-30] MEDS: Acetaminophen 500 MG TAB PO SCH ×4 (03:06→20:39)
[2023-08-30] MEDS: Morphine 2 MG/ML VIAL SLOW IVP PRN (05:28)
[2023-08-30 06:33] LABS: #Basophils 0.1 thou/uL (0.0-0.2); #Eosinphils 0.4 thou/uL (0.0-0.7); #Monocytes 0.9 thou/uL (0.11-0.59); #Neutrophils 6.4 thou/uL (1.40-6.50); %Basophils 0.6 % (0.0-1.0); %Eosinophils 4.7 % (0.0-10.0); %Lymphocytes 13.9 % (21.0-51.0); %Monocytes 9.7 % (0.0-10.0); %Neutrophils 70.8 % (42.0-75.0); Hematocrit 46.3 % (36.0-47.0); Hemoglobin 15.6 g/dL (12.0-16.0); Mean Corpuscular HGB CONC 33.7 g/dL (32.0-36.0); Mean Corpuscular Hemoglobin 31.4 pg (27.0-31.0); Mean Corpuscular Volume 93.2 fl (78.0-98.0); Mean Platelet Volume 10.5 fL (7.4-10.4); Platelet Count 278 10x3/uL (130-400); RBC Distribution Width 12.5 % (11.5-14.5); Red Blood Cell (RBC) Count 4.97 mill/uL (4.20-5.40)
[2023-08-30 06:36] LABS: Anion Gap 12 mmol/L (10-20); BUN (Urea Nitrogen) 8 mg/dL (9.8-20.1); Calc. Creatinine Clearance 61 mL/min (70-130); Calcium 9.2 mg/dL (7.8-10.44); Carbon Dioxide 27 mmol/L (23-31); Chloride 95 mmol/L (98-107); Estimated GFR 91; Glucose 107 mg/dL (83-110); Potassium 4.2 mmol/L (3.5-5.1); Sodium 130 mmol/L (136-145)
[2023-08-30] MEDS ORDERED: PROPOFOL 200 MG/20 ML VIAL ONE (11:07)
[2023-08-30] MEDS: Lidocaine 4% Patch TD SCH (16:08)
[2023-08-30] MEDS: Aspirin 81 mg Enteric Coated Tablet PO SCH ×2 (16:09→20:38)
[2023-08-30] MEDS: Amlodipine 5 MG TAB PO SCH ×2 (16:09→20:38)
[2023-08-30] MEDS: hydrALAZINE 25 MG TAB PO SCH ×3 (16:10→20:38)
[2023-08-30] MEDS: Pantoprazole 40 MG VIAL IVP SCH ×2 (16:10→20:40)
[2023-08-30] MEDS: Polyethylene Glycol 3350 17 GM Packet PO SCH (16:11)
[2023-08-30] MEDS: Mirtazapine 15 MG Soltab PO SCH (20:37)
[2023-08-30] MEDS: Ondansetron PF 4 MG/2 ML Vial IVP PRN (20:46)
[2023-08-30] MEDS: Transdermal Patch Removal TOP SCH (20:50)
[2023-08-30] MEDS: predniSONE 50 MG TAB PO SCH (20:53)
[2023-08-31] MEDS: Acetaminophen 500 MG TAB PO SCH ×3 (02:24→13:49)
[2023-08-31] MEDS: predniSONE 50 MG TAB PO SCH ×2 (02:24→09:27)
[2023-08-31 06:13] LABS: #Monocytes 0.1 thou/uL (0.11-0.59); #Neutrophils 6.7 thou/uL (1.40-6.50); %Basophils 0.1 % (0.0-1.0); %Lymphocytes 5.7 % (21.0-51.0); %Monocytes 1.1 % (0.0-10.0); %Neutrophils 92.8 % (42.0-75.0); Hematocrit 47.1 % (36.0-47.0); Hemoglobin 16.3 g/dL (12.0-16.0); Mean Corpuscular HGB CONC 34.6 g/dL (32.0-36.0); Mean Corpuscular Hemoglobin 31.8 pg (27.0-31.0); Mean Corpuscular Volume 91.8 fl (78.0-98.0); Mean Platelet Volume 9.9 fL (7.4-10.4); Platelet Count 369 10x3/uL (130-400); RBC Distribution Width 12.3 % (11.5-14.5); Red Blood Cell (RBC) Count 5.13 mill/uL (4.20-5.40); White Blood Cell (WBC) Count 7.2 10x3/uL (4.8-10.8)
[2023-08-31 06:32] LABS: Anion Gap 16 mmol/L (10-20); BUN (Urea Nitrogen) 14 mg/dL (9.8-20.1); Calc. Creatinine Clearance 58 mL/min (70-130); Calcium 9.3 mg/dL (7.8-10.44); Carbon Dioxide 24 mmol/L (23-31); Chloride 95 mmol/L (98-107); Estimated GFR 90; Glucose 162 mg/dL (83-110); Potassium 4.3 mmol/L (3.5-5.1); Sodium 131 mmol/L (136-145)
[2023-08-31] MEDS: hydrALAZINE 25 MG TAB PO SCH (08:47)
[2023-08-31] MEDS: Amlodipine 5 MG TAB PO SCH (08:47)
[2023-08-31] MEDS: Pantoprazole 40 MG VIAL IVP SCH (08:48)
[2023-08-31] MEDS: Lidocaine 4% Patch TD SCH (08:48)
[2023-08-31] MEDS: Aspirin 81 mg Enteric Coated Tablet PO SCH (08:48)
[2023-08-31] MEDS ORDERED: diphenhydrAMINE 50 MG CAP PO SCH (09:00)
[2023-08-31] MEDS: Polyethylene Glycol 3350 17 GM Packet PO SCH (09:27)
[2023-08-31] MEDS ORDERED: Iopamidol 370 76% 100 ML VIAL ONE (11:03)
[2023-08-31 12:38] VITALS: BP 113/70; TEMP 98.2
[2023-08-31] MEDS: traMADol HCl 50 MG TAB PO PRN (13:31)
[2023-08-31] MEDS ORDERED: Mirtazapine 15 MG TAB PO SCH (21:00)
== END 2023-08-31 14:19 | DRG 552 ==
LOC: ERS 01:14 → T4-A 05:54 → OBSVTOIN 08-24 14:31
PROVIDERS: ADMIT Internal Medicine; ATTEND Internal Medicine
PROC: 0DB68ZX Excision of Stomach, Via Natural or Artificial Opening Endoscopic, Diagnostic (ICD-10-PCS; principal; 2023-08-30)
DX: S32.10XA Unspecified fracture of sacrum, initial encounter for closed fracture (principal); E87.20 Acidosis, unspecified; E22.2 Syndrome of inappropriate secretion of antidiuretic hormone; J45.909 Unspecified asthma, uncomplicated; M81.0 Age-related osteoporosis without current pathological fracture; G89.29 Other chronic pain; M54.9 Dorsalgia, unspecified; W19.XXXA Unspecified fall, initial encounter; J45.20 Mild intermittent asthma, uncomplicated; E87.6 Hypokalemia; N18.1 Chronic kidney disease, stage 1; R53.81 Other malaise; K26.9 Duodenal ulcer, unspecified as acute or chronic, without hemorrhage or perforation; K59.00 Constipation, unspecified; Z96.642 Presence of left artificial hip joint; I12.9 Hypertensive chronic kidney disease with stage 1 through stage 4 chronic kidney disease, or unspecified chronic kidney disease; Z88.5 Allergy status to narcotic agent; Z88.2 Allergy status to sulfonamides; Z88.8 Allergy status to other drugs, medicaments and biological substances; Z88.0 Allergy status to penicillin; Z79.899 Other long term (current) drug therapy; Z79.82 Long term (current) use of aspirin; Z90.89 Acquired absence of other organs; Z90.710 Acquired absence of both cervix and uterus; Z98.890 Other specified postprocedural states; Z87.891 Personal history of nicotine dependence
CPT/HCPCS: 36415; 36416; 70450; 71046; 72125; 72170; 72192; 74019; 74177; 76700; 80048; 80053; 83735; 83930; 83935; 84300; 85025; 88305; 88342; 96374; 96375; 96376; C9113; G0378; J0360; J0780; J1885; J2270; J2272; J2405; J2550; J2704; J3480; J7050; J7512; Q9967

== ENCOUNTER 2023-11-01 14:14 | Outpatient (CLI) | payer OTHER, MEDICAID ==
[~2023-11-01 14:14] MED LIST: Magnevist 469MG/ML 20 ML VIAL ONE
== END 2023-11-01 14:15 | disposition home or self-care (01) ==
LOC: MRI 14:14
PROVIDERS: ATTEND Internal Medicine Gastroenterology
DX: K76.9 Liver disease, unspecified (principal); K76.89 Other specified diseases of liver; K83.8 Other specified diseases of biliary tract
CPT/HCPCS: 74183; A9579

== ENCOUNTER 2024-09-17 13:58 | Outpatient (CLI) | payer OTHER | END 2024-09-17 13:59 | disposition home or self-care (01) | LOC: SCSMRI 13:58 → BICMRI 13:59 | PROVIDERS: ATTEND Nurse Practitioner Family | DX: S32.000A Wedge compression fracture of unspecified lumbar vertebra, initial encounter for closed fracture (principal); M80.08XA Age-related osteoporosis with current pathological fracture, vertebra(e), initial encounter for fracture; M40.294 Other kyphosis, thoracic region; M47.814 Spondylosis without myelopathy or radiculopathy, thoracic region; M51.34 Other intervertebral disc degeneration, thoracic region; M48.04 Spinal stenosis, thoracic region; M51.24 Other intervertebral disc displacement, thoracic region; S22.089A Unspecified fracture of T11-T12 vertebra, initial encounter for closed fracture; M51.35 Other intervertebral disc degeneration, thoracolumbar region; M48.05 Spinal stenosis, thoracolumbar region; M47.815 Spondylosis without myelopathy or radiculopathy, thoracolumbar region; M51.16 Intervertebral disc disorders with radiculopathy, lumbar region; M47.26 Other spondylosis with radiculopathy, lumbar region; M48.061 Spinal stenosis, lumbar region without neurogenic claudication; M47.817 Spondylosis without myelopathy or radiculopathy, lumbosacral region; M51.379 Other intervertebral disc degeneration, lumbosacral region without mention of lumbar back pain or lower extremity pain; M48.07 Spinal stenosis, lumbosacral region | CPT/HCPCS: 72146; 72148 ==

== ENCOUNTER 2024-10-19 12:28 | Inpatient (IN) | payer OTHER ==
[~2024-10-19 12:28] MED LIST changes: +Aspirin Chewable 81 MG TAB ONE; +Heparin 10,000 UNITS/ 10 ML VIAL ONE; +Heparin 25,000 UNITS/D5W 500 ml bag ONE; +Iopamidol 370 76% 100 ML VIAL ONE; -Magnevist 469MG/ML 20 ML VIAL ONE; +Ondansetron PF 4 MG/2 ML Vial ONE
[2024-10-19 13:42] LABS: #Basophils Less than 0.03 10x3/uL (0.0-0.2); #Eosinophils Less than 0.03 10x3/uL (0.0-0.7); %Basophils 0.2 % (0.0-1.0); %Lymphocytes 6.4 % (21.0-51.0); %Monocytes 9.1 % (0.0-10.0); %Neutrophils 83.9 % (42.0-75.0); Hematocrit 49.8 % (36.0-47.0); Hemoglobin 17.1 g/dL (12.0-16.0); Mean Corpuscular HGB CONC 34.3 g/dL (32.0-36.0); Mean Corpuscular Hemoglobin 30.5 pg (27.0-31.0); Mean Corpuscular Volume 88.8 fL (78.0-98.0); Mean Platelet Volume 10.3 fL (7.4-10.4); Platelet Count 289 10x3/uL (130-400); RBC Distribution Width 12.6 % (11.5-14.5); Red Blood Cell (RBC) Count 5.61 mill/uL (4.20-5.40)
[2024-10-19] MEDS ORDERED: Adenosine 6 mg (2 mL) VIAL ONE (14:05)
[2024-10-19] MEDS ORDERED: Verapamil 5 MG/2 ML VIAL ONE (14:05)
[2024-10-19 14:06] LABS: ALT (SGPT) 22 U/L (8-55); AST (SGOT) 44 U/L (5-34); Albumin 3.9 g/dL (3.4-4.8); Alkaline Phosphatase 79 U/L (40-110); Anion Gap 14 mmol/L (10-20); BUN (Urea Nitrogen) 16 mg/dL (9.8-20.1); Bilirubin, Total 0.5 mg/dL (0.2-1.2); Calc. Creatinine Clearance 0 mL/min (70-130); Calcium 9.6 mg/dL (7.8-10.44); Carbon Dioxide 25 mmol/L (23-31); Chloride 95 mmol/L (98-107); Estimated GFR 88; Globulin 3.8 g/dL (2.4-3.5); Glucose 137 mg/dL (83-110); Magnesium 2.2 mg/dL (1.6-2.6); Potassium 3.6 mmol/L (3.5-5.1); Protein, Total 7.7 g/dL (5.8-8.1); Sodium 130 mmol/L (136-145)
[2024-10-19] MEDS ORDERED: fentaNYL 50 mcg/mL 1 mL Vial ONE (14:06)
[2024-10-19 14:15] LABS: Prothrombin Time 13.1 sec (12.0-14.7)
[2024-10-19 14:16] LABS: PTT 33.2 sec (22.9-36.1)
[2024-10-19 14:19] LABS: Troponin I 5.097 ng/mL (< 0.028)
[2024-10-19] MEDS ORDERED: Labetalol HCl 100 MG/20 ML VIAL ONE (14:46)
[2024-10-19] MEDS ORDERED: Nitroglycerin 0.4 MG TAB (25 Tab Bottle) SL PRN (15:28)
[2024-10-19] MEDS ORDERED: Sodium Chloride 0.9% 200 ML IV PRN (15:33)
[2024-10-19 16:13] VITALS: BMI 16.2
[2024-10-19] MEDS: Enoxaparin 30 MG (0.3 mL) SYRINGE SC SCH (17:12)
[2024-10-19] MEDS: Carvedilol 3.125 MG TAB PO SCH (17:12)
[2024-10-19 18:42] LABS: Lactic Acid 2.02 mmol/L (0.5-2.2)
[2024-10-19] MEDS: Acetaminophen/Codeine 30-300mg Tablet PO PRN (20:16)
[2024-10-19] MEDS: Sacubitril 24MG/Valsartan 26 MG TAB PO SCH (20:17)
[2024-10-19] MEDS: Atorvastatin Calcium 20 MG TAB PO SCH (20:17)
[2024-10-20] MEDS ORDERED: Albuterol 200 PUFF (6.7GM INHALER) INH PRN (02:35)
[2024-10-20 03:38] LABS: #Basophils Less than 0.03 10x3/uL (0.0-0.2); #Eosinophils Less than 0.03 10x3/uL (0.0-0.7); %Basophils 0.2 % (0.0-1.0); %Eosinophils 0.2 % (0.0-10.0); %Lymphocytes 15.3 % (21.0-51.0); %Monocytes 11.7 % (0.0-10.0); %Neutrophils 72.3 % (42.0-75.0); Hematocrit 46.6 % (36.0-47.0); Hemoglobin 15.9 g/dL (12.0-16.0); Mean Corpuscular HGB CONC 34.1 g/dL (32.0-36.0); Mean Corpuscular Hemoglobin 30.5 pg (27.0-31.0); Mean Corpuscular Volume 89.3 fL (78.0-98.0); Mean Platelet Volume 10.2 fL (7.4-10.4); Platelet Count 281 10x3/uL (130-400); RBC Distribution Width 12.6 % (11.5-14.5); Red Blood Cell (RBC) Count 5.22 mill/uL (4.20-5.40)
[2024-10-20 03:56] LABS: Anion Gap 13 mmol/L (10-20); BUN (Urea Nitrogen) 20 mg/dL (9.8-20.1); Calc. Creatinine Clearance 53 mL/min (70-130); Carbon Dioxide 22 mmol/L (23-31); Cardiac Risk 4.1 (Less than 4.5); Chloride 97 mmol/L (98-107); Cholesterol 195 mg/dl (< 200 Desired); Estimated GFR 91; Glucose 129 mg/dL (83-110); HDL Cholesterol 48 mg/dL (>60 Neg Risk); LDL Cholesterol, Calculated 125 mg/dL; Potassium 3.5 mmol/L (3.5-5.1); Sodium 128 mmol/L (136-145); Triglycerides 109 mg/dL (Less than 150)
[2024-10-20] MEDS: Mometasone 100 MCG HFA INHALER (RT USE) INH SCH (07:48)
[2024-10-20] MEDS: Ipratropium/Albuterol 3 ML NEB NEB SCH (07:48)
[2024-10-20] MEDS: Ondansetron PF 4 MG/2 ML Vial IVP PRN (08:51)
[2024-10-20] MEDS: Cholecalciferol 1,000 UNITS (25 MCG) TAB PO SCH (08:57)
[2024-10-20] MEDS: Aspirin 81 mg Enteric Coated Tablet PO SCH (08:57)
[2024-10-20] MEDS: Senokot 8.6 MG TAB PO SCH (08:57)
[2024-10-20] MEDS: Calcium Carbonate 500 MG TAB PO SCH (08:57)
[2024-10-20] MEDS ORDERED: Non-Formulary Item 1 EACH (Fluticasone/Umeclidin/Vilanter [Trelegy Ellipta 200-62.5-25] 1 IH SCH (09:00)
[2024-10-20] MEDS: Apixaban 5 MG TAB PO SCH (18:20)
[2024-10-20] MEDS: Metoprolol Tartrate 5 MG (5 mL) VIAL ONE ×2 (19:01→19:02)
[2024-10-20] MEDS: Sodium Chloride 0.9% 100 ML ONE (19:02)
[2024-10-20] MEDS: Morphine 4 MG/ML VIAL ONE (19:02)
[2024-10-20] MEDS: Amiodarone 450 MG in Dextrose 5% in Water 250 ML IVPB SCH (19:25)
[2024-10-20] MEDS: Amiodarone 150 MG, Admixture Fee 1 EACH in Dextrose 5% in Water 100 ML IVPB SCH (19:33)
[2024-10-20] MEDS: Nitroglycerin 0.4 MG TAB (25 Tab Bottle) SL PRN (22:14)
[2024-10-21 00:20] LABS: Magnesium 1.9 mg/dL (1.6-2.6)
[2024-10-21 00:59] LABS: Troponin I 1.743 ng/mL (< 0.028)
[2024-10-21] MEDS: Morphine 2 MG/ML VIAL SLOW IVP PRN (06:25)
[2024-10-21] MEDS: Apixaban 5 MG TAB PO SCH (08:46)
[2024-10-21 17:08] VITALS: BMI 16.2
[2024-10-21] MEDS: Amiodarone 200 MG TAB PO SCH (19:52)
[2024-10-22 03:48] LABS: #Basophils 0.04 10x3/uL (0.0-0.2); %Basophils 0.4 % (0.0-1.0); %Eosinophils 1.2 % (0.0-10.0); %Lymphocytes 18.3 % (21.0-51.0); %Monocytes 11.1 % (0.0-10.0); %Neutrophils 68.7 % (42.0-75.0); Hematocrit 46.2 % (36.0-47.0); Hemoglobin 15.9 g/dL (12.0-16.0); Mean Corpuscular HGB CONC 34.4 g/dL (32.0-36.0); Mean Corpuscular Hemoglobin 30.4 pg (27.0-31.0); Mean Corpuscular Volume 88.3 fL (78.0-98.0); Mean Platelet Volume 10.7 fL (7.4-10.4); Platelet Count 265 10x3/uL (130-400); RBC Distribution Width 12.5 % (11.5-14.5); Red Blood Cell (RBC) Count 5.23 mill/uL (4.20-5.40)
[2024-10-22 04:05] LABS: Anion Gap 12 mmol/L (10-20); BUN (Urea Nitrogen) 24 mg/dL (9.8-20.1); Calc. Creatinine Clearance 49 mL/min (70-130); Calcium 8.8 mg/dL (7.8-10.44); Carbon Dioxide 26 mmol/L (23-31); Chloride 98 mmol/L (98-107); Estimated GFR 89; Glucose 110 mg/dL (83-110); Potassium 3.7 mmol/L (3.5-5.1); Sodium 132 mmol/L (136-145)
[2024-10-22] MEDS: Acetaminophen/Codeine 30-300mg Tablet PO PRN (08:46)
[2024-10-22] MEDS: Sodium Chloride 0.9% 1,000 ML IV SCH (12:02)
[2024-10-22] MEDS: Pantoprazole 40 MG DR.TAB PO SCH (12:02)
[2024-10-22] MEDS: Mirtazapine 15 MG TAB PO SCH (20:09)
[2024-10-23] MEDS: Amiodarone 200 MG TAB PO SCH (08:44)
[2024-10-23] MEDS: Pantoprazole 40 MG DR.TAB PO SCH (08:44)
[2024-10-23] MEDS: Losartan 25 MG TAB PO SCH (10:28)
[2024-10-23] MEDS: Promethazine 25 MG TAB PO PRN (12:54)
[2024-10-24] MEDS: Losartan 25 MG TAB PO SCH (09:10)
[2024-10-25 04:04] LABS: #Basophils 0.05 10x3/uL (0.0-0.2); %Basophils 0.7 % (0.0-1.0); %Eosinophils 3.3 % (0.0-10.0); %Lymphocytes 20.2 % (21.0-51.0); %Monocytes 10.6 % (0.0-10.0); %Neutrophils 64.8 % (42.0-75.0); Hematocrit 39.2 % (36.0-47.0); Mean Corpuscular HGB CONC 33.2 g/dL (32.0-36.0); Mean Corpuscular Hemoglobin 30.7 pg (27.0-31.0); Mean Corpuscular Volume 92.5 fL (78.0-98.0); Mean Platelet Volume 10.3 fL (7.4-10.4); Platelet Count 211 10x3/uL (130-400); RBC Distribution Width 12.7 % (11.5-14.5); Red Blood Cell (RBC) Count 4.24 mill/uL (4.20-5.40)
[2024-10-25 04:24] LABS: ALT (SGPT) 24 U/L (8-55); AST (SGOT) 24 U/L (5-34); Albumin 3.2 g/dL (3.4-4.8); Alkaline Phosphatase 61 U/L (40-110); Anion Gap 10 mmol/L (10-20); BUN (Urea Nitrogen) 19 mg/dL (9.8-20.1); Bilirubin, Total 0.3 mg/dL (0.2-1.2); Calc. Creatinine Clearance 46 mL/min (70-130); Calcium 8.7 mg/dL (7.8-10.44); Carbon Dioxide 27 mmol/L (23-31); Chloride 101 mmol/L (98-107); Estimated GFR 84; Globulin 2.7 g/dL (2.4-3.5); Glucose 94 mg/dL (83-110); Magnesium 2.1 mg/dL (1.6-2.6); Potassium 4.3 mmol/L (3.5-5.1); Protein, Total 5.9 g/dL (5.8-8.1); Sodium 134 mmol/L (136-145)
[2024-10-25] MEDS: Sacubitril 24MG/Valsartan 26 MG TAB PO SCH (09:18)
[2024-10-25 13:22] VITALS: BP 145/90; TEMP 98.2
== END 2024-10-25 14:39 | disposition home or self-care (01) | DRG 287 ==
LOC: ERS 12:28 → PCU 14:55
PROVIDERS: ADMIT Family Medicine; ATTEND Internal Medicine
PROC: 4A023N7 Measurement of Cardiac Sampling and Pressure, Left Heart, Percutaneous Approach (ICD-10-PCS; principal; 2024-10-19)
PROC: B2111ZZ Fluoroscopy of Multiple Coronary Arteries using Low Osmolar Contrast (ICD-10-PCS; 2024-10-19)
DX: I51.81 Takotsubo syndrome (principal); R64 Cachexia; Z68.1 Body mass index [BMI] 19.9 or less, adult; G89.29 Other chronic pain; M54.9 Dorsalgia, unspecified; I10 Essential (primary) hypertension; M81.0 Age-related osteoporosis without current pathological fracture; I48.0 Paroxysmal atrial fibrillation; I95.1 Orthostatic hypotension; Z90.710 Acquired absence of both cervix and uterus; Z88.0 Allergy status to penicillin; Z88.2 Allergy status to sulfonamides; Z79.899 Other long term (current) drug therapy; Z88.1 Allergy status to other antibiotic agents
CPT/HCPCS: 36415; 36416; 71045; 80048; 80053; 80061; 83605; 83735; 84484; 85025; 85610; 85730; 86850; 86900; 86901; 87428; 93005; 93010; 93458; 93798; 94640; 96374; 96375; 99152; 99153; C1769; C1887; C1894; J0153; J0282; J1644; J1650; J2270; J2272; J2405; J3010; J7070; J7620; Q0169; Q9967

== ENCOUNTER 2025-08-16 17:49 | Inpatient (IN) | payer OTHER ==
[~2025-08-16 17:49] MED LIST changes: -Aspirin Chewable 81 MG TAB ONE; -Heparin 10,000 UNITS/ 10 ML VIAL ONE; -Heparin 25,000 UNITS/D5W 500 ml bag ONE; -Ondansetron PF 4 MG/2 ML Vial ONE
[2025-08-16 18:11] LABS: #Basophils 0.05 10x3/uL (0.0-0.2); #Eosinophils 0.21 10x3/uL (0.0-0.7); #Monocytes 0.55 10x3/uL (0.11-0.59); #Neutrophils 5.98 10x3/uL (1.40-6.50); %Basophils 0.6 % (0.0-1.0); %Eosinophils 2.6 % (0.0-10.0); %Lymphocytes 14.2 % (21.0-51.0); %Monocytes 6.9 % (0.0-10.0); %Neutrophils 75.3 % (42.0-75.0); Hematocrit 38.5 % (36.0-47.0); Hemoglobin 12.3 g/dL (12.0-16.0); Mean Corpuscular Hemoglobin 29.1 pg (27.0-31.0); Mean Corpuscular Volume 91.0 fL (78.0-98.0); Platelet Count 275 10x3/uL (130-400); Red Blood Cell (RBC) Count 4.23 mill/uL (4.20-5.40); White Blood Cell (WBC) Count 7.95 10x3/uL (4.8-10.8)
[2025-08-16 18:24] LABS: ALT (SGPT) 21 U/L (Less than 34); AST (SGOT) 38 U/L (11-34); Albumin 4.3 g/dL (3.1-4.5); Alkaline Phosphatase 69 U/L (40-110); Anion Gap 16 mmol/L (10-20); BUN (Urea Nitrogen) 23 mg/dL (9.8-20.1); Bilirubin, Total 0.4 mg/dL (0.3-1.2); Calc. Creatinine Clearance 0 mL/min (70-130); Calcium 9.4 mg/dL (7.8-10.44); Carbon Dioxide 24 mmol/L (23-31); Chloride 99 mmol/L (98-107); Globulin 3.2 g/dL (2.4-3.5); Glucose 124 mg/dL (83-110); Potassium 3.6 mmol/L (3.5-5.1); Sodium 135 mmol/L (136-145)
[2025-08-16] MEDS ORDERED: CEFAZOLIN 2 GM VIAL ONE (18:28)
[2025-08-16] MEDS ORDERED: levETIRAcetam 500 MG (5 mL) VIAL ONE (18:36)
[2025-08-16] MEDS ORDERED: niCARdipine 25 MG/10 ML SDV ONE (18:48)
[2025-08-16] MEDS ORDERED: Rocuronium Bromide 10 MG/ML (10ML VIAL) ONE (19:16)
[2025-08-16] MEDS ORDERED: SUCCINYLCHOLINE/SOD CL,ISO/PF 200 MG/10 ML SYRINGE FS ONE (19:16)
[2025-08-16] MEDS ORDERED: Lidocaine 2% PF 100 mg/5 ml Syringe ONE (19:16)
[2025-08-16] MEDS ORDERED: hydrALAZINE 20 MG/ML VIAL ONE (19:50)
[2025-08-16] MEDS ORDERED: Ondansetron PF 4 MG/2 ML Vial IVP PRN (19:54)
[2025-08-16] MEDS ORDERED: hydrALAZINE 20 MG/ML VIAL SLOW IVP PRN (19:54)
[2025-08-16] MEDS ORDERED: Dextrose 50% Abboject 50 ML SYRINGE SLOW IVP PRN (19:54)
[2025-08-16] MEDS ORDERED: Glucagon 1 MG/ML KIT IM PRN (19:54)
[2025-08-16] MEDS ORDERED: Ondansetron PF 4 MG/2 ML Vial ONE (20:58)
[2025-08-16] MEDS: HUM PROTHROMBIN CPLX(PCC)4FACT 2,000 UNITS in Admixture Fee 1 EACH IV SCH (22:07)
[2025-08-17] MEDS: levETIRAcetam 500 MG (5 mL) VIAL SLOW IVP SCH ×2 (00:16→09:59)
[2025-08-17] MEDS: Senokot S 8.6-50 MG TAB PO SCH (00:16)
[2025-08-17 04:05] LABS: #Basophils 0.04 10x3/uL (0.0-0.2); #Eosinophils 0.11 10x3/uL (0.0-0.7); #Monocytes 0.71 10x3/uL (0.11-0.59); #Neutrophils 4.82 10x3/uL (1.40-6.50); %Basophils 0.6 % (0.0-1.0); %Eosinophils 1.6 % (0.0-10.0); %Lymphocytes 15.2 % (21.0-51.0); %Monocytes 10.6 % (0.0-10.0); %Neutrophils 71.7 % (42.0-75.0); Hematocrit 31.9 % (36.0-47.0); Hemoglobin 10.0 g/dL (12.0-16.0); Mean Corpuscular Hemoglobin 29.4 pg (27.0-31.0); Mean Corpuscular Volume 93.8 fL (78.0-98.0); Platelet Count 191 10x3/uL (130-400); Red Blood Cell (RBC) Count 3.40 mill/uL (4.20-5.40); White Blood Cell (WBC) Count 6.72 10x3/uL (4.8-10.8)
[2025-08-17] MEDS: Acetaminophen 325 MG TAB PO PRN (04:09)
[2025-08-17 04:36] LABS: Anion Gap 14 mmol/L (10-20); BUN (Urea Nitrogen) 17 mg/dL (9.8-20.1); Calc. Creatinine Clearance 54 mL/min (70-130); Calcium 8.4 mg/dL (7.8-10.44); Carbon Dioxide 24 mmol/L (23-31); Chloride 102 mmol/L (98-107); Glucose 99 mg/dL (83-110); Potassium 3.7 mmol/L (3.5-5.1); Sodium 136 mmol/L (136-145)
[2025-08-17] MEDS: hydrALAZINE 20 MG/ML VIAL SLOW IVP PRN (06:09)
[2025-08-17] MEDS: Mupirocin 1 GM TUBE NASAL DECOLONIZATION TP SCH ×2 (06:18→09:59)
[2025-08-17] MEDS: Methocarbamol 500 MG TAB PO PRN (08:02)
[2025-08-17] MEDS: Pantoprazole 40 MG VIAL IVP SCH (09:59)
[2025-08-17] MEDS: FLU (Fluad Triv) 25-26 (65UP)PF 45 MCG/0.5 ML Syringe IM ONE (10:27)
[2025-08-17] MEDS: Mupirocin 1 GM TUBE NASAL DECOLOIZATION TP SCH (20:09)
[2025-08-18 04:01] LABS: #Basophils 0.06 10x3/uL (0.0-0.2); #Eosinophils 0.06 10x3/uL (0.0-0.7); #Monocytes 0.55 10x3/uL (0.11-0.59); #Neutrophils 7.78 10x3/uL (1.40-6.50); %Basophils 0.7 % (0.0-1.0); %Eosinophils 0.7 % (0.0-10.0); %Lymphocytes 5.7 % (21.0-51.0); %Monocytes 6.1 % (0.0-10.0); %Neutrophils 86.7 % (42.0-75.0); Hematocrit 36.0 % (36.0-47.0); Hemoglobin 11.1 g/dL (12.0-16.0); Mean Corpuscular Hemoglobin 29.6 pg (27.0-31.0); Mean Corpuscular Volume 96.0 fL (78.0-98.0); Platelet Count 204 10x3/uL (130-400); Red Blood Cell (RBC) Count 3.75 mill/uL (4.20-5.40); White Blood Cell (WBC) Count 8.97 10x3/uL (4.8-10.8)
[2025-08-18 04:20] LABS: Anion Gap 13 mmol/L (10-20); BUN (Urea Nitrogen) 13 mg/dL (9.8-20.1); Calc. Creatinine Clearance 65 mL/min (70-130); Calcium 8.6 mg/dL (7.8-10.44); Carbon Dioxide 19 mmol/L (23-31); Chloride 108 mmol/L (98-107); Glucose 76 mg/dL (83-110); Potassium 3.4 mmol/L (3.5-5.1); Sodium 137 mmol/L (136-145)
[2025-08-18] MEDS: oxyCODONE 5 MG TAB PO PRN (10:16)
[2025-08-18] MEDS ORDERED: PHOS-NAK 1 PKT PACK PO PRN (13:00)
[2025-08-18 17:12] LABS: Potassium 3.4 mmol/L (3.5-5.1)
[2025-08-19] MEDS: niCARdipine 25 MG in Sodium Chloride 0.9% 250 ML 250 ML IVPB SCH (03:44)
[2025-08-19 05:28] LABS: #Basophils 0.03 10x3/uL (0.0-0.2); #Eosinophils 0.07 10x3/uL (0.0-0.7); #Monocytes 0.91 10x3/uL (0.11-0.59); #Neutrophils 8.90 10x3/uL (1.40-6.50); %Basophils 0.3 % (0.0-1.0); %Eosinophils 0.6 % (0.0-10.0); %Lymphocytes 8.5 % (21.0-51.0); %Monocytes 8.4 % (0.0-10.0); %Neutrophils 81.8 % (42.0-75.0); Hematocrit 32.4 % (36.0-47.0); Hemoglobin 10.5 g/dL (12.0-16.0); Mean Corpuscular Hemoglobin 29.5 pg (27.0-31.0); Mean Corpuscular Volume 91.0 fL (78.0-98.0); Platelet Count 228 10x3/uL (130-400); Red Blood Cell (RBC) Count 3.56 mill/uL (4.20-5.40); White Blood Cell (WBC) Count 10.87 10x3/uL (4.8-10.8)
[2025-08-19 05:48] LABS: Anion Gap 10 mmol/L (10-20); BUN (Urea Nitrogen) 10 mg/dL (9.8-20.1); Calc. Creatinine Clearance 85 mL/min (70-130); Calcium 8.5 mg/dL (7.8-10.44); Carbon Dioxide 23 mmol/L (23-31); Chloride 106 mmol/L (98-107); Glucose 124 mg/dL (83-110); Potassium 3.7 mmol/L (3.5-5.1); Sodium 135 mmol/L (136-145)
[2025-08-20 05:12] LABS: #Basophils Less than 0.03 10x3/uL (0.0-0.2); #Eosinophils 0.08 10x3/uL (0.0-0.7); #Monocytes 0.81 10x3/uL (0.11-0.59); #Neutrophils 5.98 10x3/uL (1.40-6.50); %Basophils 0.3 % (0.0-1.0); %Eosinophils 1.0 % (0.0-10.0); %Lymphocytes 12.6 % (21.0-51.0); %Monocytes 10.2 % (0.0-10.0); %Neutrophils 75.6 % (42.0-75.0); Hematocrit 31.4 % (36.0-47.0); Hemoglobin 10.3 g/dL (12.0-16.0); Mean Corpuscular Hemoglobin 29.6 pg (27.0-31.0); Mean Corpuscular Volume 90.2 fL (78.0-98.0); Platelet Count 200 10x3/uL (130-400); Red Blood Cell (RBC) Count 3.48 mill/uL (4.20-5.40); White Blood Cell (WBC) Count 7.91 10x3/uL (4.8-10.8)
[2025-08-20 05:33] LABS: Anion Gap 14 mmol/L (10-20); BUN (Urea Nitrogen) 11 mg/dL (9.8-20.1); Calc. Creatinine Clearance 90 mL/min (70-130); Calcium 7.9 mg/dL (7.8-10.44); Carbon Dioxide 22 mmol/L (23-31); Chloride 106 mmol/L (98-107); Glucose 99 mg/dL (83-110); Potassium 3.1 mmol/L (3.5-5.1); Sodium 139 mmol/L (136-145)
[2025-08-20] MEDS: Potassium Chloride 20 MEQ in Premix 1 BAG IVPB PRN (05:41)
[2025-08-21 04:21] LABS: Anion Gap 11 mmol/L (10-20); BUN (Urea Nitrogen) 7 mg/dL (9.8-20.1); Calc. Creatinine Clearance 96 mL/min (70-130); Calcium 7.9 mg/dL (7.8-10.44); Carbon Dioxide 23 mmol/L (23-31); Chloride 104 mmol/L (98-107); Glucose 104 mg/dL (83-110); Potassium 2.8 mmol/L (3.5-5.1); Sodium 135 mmol/L (136-145)
[2025-08-21 04:23] LABS: #Basophils Less than 0.03 10x3/uL (0.0-0.2); #Eosinophils 0.09 10x3/uL (0.0-0.7); #Monocytes 0.78 10x3/uL (0.11-0.59); #Neutrophils 5.87 10x3/uL (1.40-6.50); %Basophils 0.3 % (0.0-1.0); %Eosinophils 1.2 % (0.0-10.0); %Lymphocytes 13.1 % (21.0-51.0); %Monocytes 10.0 % (0.0-10.0); %Neutrophils 75.3 % (42.0-75.0); Hematocrit 32.9 % (36.0-47.0); Hemoglobin 10.8 g/dL (12.0-16.0); Mean Corpuscular Hemoglobin 29.1 pg (27.0-31.0); Mean Corpuscular Volume 88.7 fL (78.0-98.0); Platelet Count 229 10x3/uL (130-400); Red Blood Cell (RBC) Count 3.71 mill/uL (4.20-5.40); White Blood Cell (WBC) Count 7.79 10x3/uL (4.8-10.8)
[2025-08-21] MEDS: Amiodarone 200 MG TAB PO SCH (07:15)
[2025-08-21 08:23] LABS: Anion Gap 12 mmol/L (10-20); BUN (Urea Nitrogen) 7 mg/dL (9.8-20.1); Calc. Creatinine Clearance 101 mL/min (70-130); Calcium 8.1 mg/dL (7.8-10.44); Carbon Dioxide 23 mmol/L (23-31); Chloride 102 mmol/L (98-107); Glucose 112 mg/dL (83-110); Potassium 2.9 mmol/L (3.5-5.1); Sodium 134 mmol/L (136-145)
[2025-08-21 08:56] LABS: Glucose, Urine (Dipstick) Normal (Negative); Leukocyte Negative Leu/uL (Negative); Protein, Urine (Dipstick) Negative (Neg-Trace); Specific Gravity, Urine 1.007 (1.002-1.036)
[2025-08-21 08:57] LABS: Osmolality, Serum 269 mOsm/kg (280-301)
[2025-08-21 12:01] LABS: Osmolality, Urine 330 mOsm/kg (50-1200)
[2025-08-21 17:11] LABS: Anion Gap 12 mmol/L (10-20); BUN (Urea Nitrogen) 10 mg/dL (9.8-20.1); Calc. Creatinine Clearance 87 mL/min (70-130); Calcium 8.2 mg/dL (7.8-10.44); Carbon Dioxide 22 mmol/L (23-31); Chloride 104 mmol/L (98-107); Glucose 100 mg/dL (83-110); Potassium 3.8 mmol/L (3.5-5.1); Sodium 134 mmol/L (136-145)
[2025-08-22 03:54] LABS: #Basophils Less than 0.03 10x3/uL (0.0-0.2); #Eosinophils 0.13 10x3/uL (0.0-0.7); #Monocytes 1.00 10x3/uL (0.11-0.59); #Neutrophils 6.85 10x3/uL (1.40-6.50); %Basophils 0.2 % (0.0-1.0); %Eosinophils 1.5 % (0.0-10.0); %Lymphocytes 9.0 % (21.0-51.0); %Monocytes 11.3 % (0.0-10.0); %Neutrophils 77.7 % (42.0-75.0); Hematocrit 34.3 % (36.0-47.0); Hemoglobin 11.4 g/dL (12.0-16.0); Mean Corpuscular Hemoglobin 29.6 pg (27.0-31.0); Mean Corpuscular Volume 89.1 fL (78.0-98.0); Platelet Count 250 10x3/uL (130-400); Red Blood Cell (RBC) Count 3.85 mill/uL (4.20-5.40); White Blood Cell (WBC) Count 8.82 10x3/uL (4.8-10.8)
[2025-08-22 04:11] LABS: Anion Gap 11 mmol/L (10-20); BUN (Urea Nitrogen) 12 mg/dL (9.8-20.1); Calc. Creatinine Clearance 89 mL/min (70-130); Calcium 8.9 mg/dL (7.8-10.44); Carbon Dioxide 24 mmol/L (23-31); Chloride 102 mmol/L (98-107); Glucose 112 mg/dL (83-110); Magnesium 1.6 mg/dL (1.6-2.6); Potassium 3.3 mmol/L (3.5-5.1); Sodium 134 mmol/L (136-145)
[2025-08-22] MEDS: Magnesium 2 GM/50 ML(in water) 2 GM in Premix 1 BAG IVPB PRN (05:01)
[2025-08-22 17:20] LABS: Anion Gap 10 mmol/L (10-20); BUN (Urea Nitrogen) 13 mg/dL (9.8-20.1); Calc. Creatinine Clearance 83 mL/min (70-130); Calcium 8.7 mg/dL (7.8-10.44); Carbon Dioxide 21 mmol/L (23-31); Chloride 104 mmol/L (98-107); Glucose 119 mg/dL (83-110); Potassium 3.8 mmol/L (3.5-5.1); Sodium 131 mmol/L (136-145)
[2025-08-23 04:25] LABS: #Basophils 0.03 10x3/uL (0.0-0.2); #Eosinophils 0.25 10x3/uL (0.0-0.7); #Monocytes 0.76 10x3/uL (0.11-0.59); #Neutrophils 6.54 10x3/uL (1.40-6.50); %Basophils 0.4 % (0.0-1.0); %Eosinophils 2.9 % (0.0-10.0); %Lymphocytes 10.6 % (21.0-51.0); %Monocytes 9.0 % (0.0-10.0); %Neutrophils 77.0 % (42.0-75.0); Hematocrit 30.7 % (36.0-47.0); Hemoglobin 10.1 g/dL (12.0-16.0); Mean Corpuscular Hemoglobin 29.1 pg (27.0-31.0); Mean Corpuscular Volume 88.5 fL (78.0-98.0); Platelet Count 217 10x3/uL (130-400); Red Blood Cell (RBC) Count 3.47 mill/uL (4.20-5.40); White Blood Cell (WBC) Count 8.49 10x3/uL (4.8-10.8)
[2025-08-23 04:40] LABS: Anion Gap 10 mmol/L (10-20); BUN (Urea Nitrogen) 11 mg/dL (9.8-20.1); Calc. Creatinine Clearance 83 mL/min (70-130); Calcium 8.4 mg/dL (7.8-10.44); Carbon Dioxide 24 mmol/L (23-31); Chloride 101 mmol/L (98-107); Glucose 106 mg/dL (83-110); Potassium 3.6 mmol/L (3.5-5.1); Sodium 131 mmol/L (136-145)
[2025-08-24 05:30] LABS: #Basophils 0.03 10x3/uL (0.0-0.2); #Eosinophils 0.18 10x3/uL (0.0-0.7); #Monocytes 0.78 10x3/uL (0.11-0.59); #Neutrophils 7.37 10x3/uL (1.40-6.50); %Basophils 0.3 % (0.0-1.0); %Eosinophils 2.0 % (0.0-10.0); %Lymphocytes 8.9 % (21.0-51.0); %Monocytes 8.5 % (0.0-10.0); %Neutrophils 80.1 % (42.0-75.0); Hematocrit 28.2 % (36.0-47.0); Hemoglobin 9.3 g/dL (12.0-16.0); Mean Corpuscular Hemoglobin 29.3 pg (27.0-31.0); Mean Corpuscular Volume 89.0 fL (78.0-98.0); Platelet Count 229 10x3/uL (130-400); Red Blood Cell (RBC) Count 3.17 mill/uL (4.20-5.40); White Blood Cell (WBC) Count 9.20 10x3/uL (4.8-10.8)
[2025-08-24 05:44] LABS: Anion Gap 8 mmol/L (10-20); BUN (Urea Nitrogen) 12 mg/dL (9.8-20.1); Calc. Creatinine Clearance 74 mL/min (70-130); Calcium 8.0 mg/dL (7.8-10.44); Carbon Dioxide 23 mmol/L (23-31); Chloride 100 mmol/L (98-107); Glucose 111 mg/dL (83-110); Potassium 3.4 mmol/L (3.5-5.1); Sodium 128 mmol/L (136-145)
[2025-08-24 06:26] LABS: Magnesium 1.6 mg/dL (1.6-2.6)
[2025-08-24 12:49] LABS: Potassium 3.7 mmol/L (3.5-5.1)
[2025-08-25 04:30] LABS: #Basophils 0.04 10x3/uL (0.0-0.2); #Eosinophils 0.32 10x3/uL (0.0-0.7); #Monocytes 0.94 10x3/uL (0.11-0.59); #Neutrophils 7.04 10x3/uL (1.40-6.50); %Basophils 0.4 % (0.0-1.0); %Eosinophils 3.4 % (0.0-10.0); %Lymphocytes 11.3 % (21.0-51.0); %Monocytes 10.0 % (0.0-10.0); %Neutrophils 74.7 % (42.0-75.0); Hematocrit 31.2 % (36.0-47.0); Hemoglobin 10.2 g/dL (12.0-16.0); Mean Corpuscular Hemoglobin 29.4 pg (27.0-31.0); Mean Corpuscular Volume 89.9 fL (78.0-98.0); Platelet Count 285 10x3/uL (130-400); Red Blood Cell (RBC) Count 3.47 mill/uL (4.20-5.40); White Blood Cell (WBC) Count 9.43 10x3/uL (4.8-10.8)
[2025-08-25 04:48] LABS: Anion Gap 12 mmol/L (10-20); BUN (Urea Nitrogen) 13 mg/dL (9.8-20.1); Calc. Creatinine Clearance 85 mL/min (70-130); Calcium 8.4 mg/dL (7.8-10.44); Carbon Dioxide 23 mmol/L (23-31); Chloride 100 mmol/L (98-107); Glucose 90 mg/dL (83-110); Potassium 3.8 mmol/L (3.5-5.1); Sodium 131 mmol/L (136-145)
[2025-08-25] MEDS: HYDROcodone/Acetaminophen 7.5/325 mg Tablet PO PRN (09:43)
[2025-08-25 12:18] VITALS: BMI 17.9
[2025-08-25 13:47] LABS: INR-International Normal Ratio 1.0; Prothrombin Time 13.3 sec (12.0-14.7)
[2025-08-25 13:48] LABS: PTT 36.1 sec (22.9-36.1)
[2025-08-26 03:39] LABS: #Basophils 0.04 10x3/uL (0.0-0.2); #Eosinophils 0.35 10x3/uL (0.0-0.7); #Monocytes 0.86 10x3/uL (0.11-0.59); #Neutrophils 6.75 10x3/uL (1.40-6.50); %Basophils 0.5 % (0.0-1.0); %Eosinophils 4.0 % (0.0-10.0); %Lymphocytes 8.9 % (21.0-51.0); %Monocytes 9.8 % (0.0-10.0); %Neutrophils 76.5 % (42.0-75.0); Hematocrit 29.6 % (36.0-47.0); Hemoglobin 9.7 g/dL (12.0-16.0); Mean Corpuscular Hemoglobin 29.2 pg (27.0-31.0); Mean Corpuscular Volume 89.2 fL (78.0-98.0); Platelet Count 278 10x3/uL (130-400); Red Blood Cell (RBC) Count 3.32 mill/uL (4.20-5.40); White Blood Cell (WBC) Count 8.81 10x3/uL (4.8-10.8)
[2025-08-26 04:09] LABS: Anion Gap 11 mmol/L (10-20); BUN (Urea Nitrogen) 11 mg/dL (9.8-20.1); Calc. Creatinine Clearance 79 mL/min (70-130); Calcium 8.9 mg/dL (7.8-10.44); Carbon Dioxide 26 mmol/L (23-31); Chloride 99 mmol/L (98-107); Glucose 101 mg/dL (83-110); Potassium 3.6 mmol/L (3.5-5.1); Sodium 132 mmol/L (136-145)
[2025-08-26] MEDS ORDERED: fentaNYL PF 100 MCG/2 ML SYRINGE ONE (12:43)
[2025-08-26] MEDS ORDERED: Lidocaine 1% PF 5 ML VIAL ONE (12:43)
[2025-08-26] MEDS ORDERED: Rocuronium Bromide 10 MG/ML (10ML VIAL) ONE (12:43)
[2025-08-26] MEDS ORDERED: Lidocaine 1% w/Epinephrine 1:100K 20 ML VIAL ONE (13:14)
[2025-08-26] MEDS ORDERED: Bacitracin Zinc Ointment 30 gm TUBE ONE (13:14)
[2025-08-26] MEDS ORDERED: Thrombin 5000 UNITS/5 ML VIAL ONE (13:14)
[2025-08-26] MEDS ORDERED: LevoFLOXacin 500 mg/D5W 500 MG in Premix 1 BAG IVPB SCH (13:15)
[2025-08-26] MEDS ORDERED: Clindamycin/D5W 900 MG in Premix 1 BAG IVPB SCH (13:15)
[2025-08-26] MEDS ORDERED: LevoFLOXacin D5W 500 mg (100 mL) BAG ONE (13:32)
[2025-08-26] MEDS ORDERED: PROPOFOL 200 MG/20 ML VIAL ONE (13:54)
[2025-08-26] MEDS ORDERED: PHENYLEPHRINE-NS 100 MCG/ML 10 ML SYRINGE ONE (14:02)
[2025-08-26] MEDS ORDERED: Phenylephrine 40 MG/NS 250 ML 250 ML ONE (14:11)
[2025-08-26] MEDS ORDERED: Ondansetron PF 4 MG/2 ML Vial ONE (14:19)
[2025-08-26] MEDS ORDERED: SUGAMMADEX SODIUM 200 MG/2 ML VIAL ONE (15:11)
[2025-08-26] MEDS: Clindamycin/D5W 900 MG in Premix 1 BAG IVPB SCH (17:54)
[2025-08-26] MEDS: LevoFLOXacin 500 mg/D5W 500 MG in Premix 1 BAG IVPB SCH (17:55)
[2025-08-27 04:19] LABS: #Basophils Less than 0.03 10x3/uL (0.0-0.2); #Eosinophils Less than 0.03 10x3/uL (0.0-0.7); #Monocytes 0.68 10x3/uL (0.11-0.59); #Neutrophils 9.60 10x3/uL (1.40-6.50); %Basophils 0.1 % (0.0-1.0); %Eosinophils 0.0 % (0.0-10.0); %Lymphocytes 3.6 % (21.0-51.0); %Monocytes 6.4 % (0.0-10.0); %Neutrophils 89.7 % (42.0-75.0); Hematocrit 29.8 % (36.0-47.0); Hemoglobin 9.6 g/dL (12.0-16.0); Mean Corpuscular Hemoglobin 28.7 pg (27.0-31.0); Mean Corpuscular Volume 89.2 fL (78.0-98.0); Platelet Count 348 10x3/uL (130-400); Red Blood Cell (RBC) Count 3.34 mill/uL (4.20-5.40); White Blood Cell (WBC) Count 10.69 10x3/uL (4.8-10.8)
[2025-08-27 04:43] LABS: ALT (SGPT) 16 U/L (Less than 34); AST (SGOT) 22 U/L (11-34); Albumin 2.9 g/dL (3.1-4.5); Alkaline Phosphatase 57 U/L (40-110); Anion Gap 14 mmol/L (10-20); BUN (Urea Nitrogen) 17 mg/dL (9.8-20.1); Bilirubin, Total 0.4 mg/dL (0.3-1.2); Calc. Creatinine Clearance 64 mL/min (70-130); Calcium 8.8 mg/dL (7.8-10.44); Carbon Dioxide 24 mmol/L (23-31); Chloride 99 mmol/L (98-107); Globulin 3.1 g/dL (2.4-3.5); Glucose 111 mg/dL (83-110); Potassium 4.0 mmol/L (3.5-5.1); Sodium 133 mmol/L (136-145)
[2025-08-27] MEDS: Mupirocin 1 GM TUBE NASAL DECOLONIZATION NASAL SCH (10:07)
[2025-08-27] MEDS: Transdermal Patch Removal TOP SCH (21:45)
[2025-08-28 05:04] LABS: #Basophils 0.03 10x3/uL (0.0-0.2); #Eosinophils 0.07 10x3/uL (0.0-0.7); #Monocytes 1.08 10x3/uL (0.11-0.59); #Neutrophils 6.81 10x3/uL (1.40-6.50); %Basophils 0.3 % (0.0-1.0); %Eosinophils 0.8 % (0.0-10.0); %Lymphocytes 9.9 % (21.0-51.0); %Monocytes 12.1 % (0.0-10.0); %Neutrophils 76.7 % (42.0-75.0); Hematocrit 28.2 % (36.0-47.0); Hemoglobin 9.1 g/dL (12.0-16.0); Mean Corpuscular Hemoglobin 29.2 pg (27.0-31.0); Mean Corpuscular Volume 90.4 fL (78.0-98.0); Platelet Count 318 10x3/uL (130-400); Red Blood Cell (RBC) Count 3.12 mill/uL (4.20-5.40); White Blood Cell (WBC) Count 8.89 10x3/uL (4.8-10.8)
[2025-08-28 05:18] LABS: Anion Gap 12 mmol/L (10-20); BUN (Urea Nitrogen) 18 mg/dL (9.8-20.1); Calc. Creatinine Clearance 63 mL/min (70-130); Calcium 8.4 mg/dL (7.8-10.44); Carbon Dioxide 25 mmol/L (23-31); Chloride 100 mmol/L (98-107); Glucose 90 mg/dL (83-110); Potassium 3.5 mmol/L (3.5-5.1); Sodium 133 mmol/L (136-145)
[2025-08-28 20:50] LABS: Potassium 3.8 mmol/L (3.5-5.1)
[2025-08-29 04:56] LABS: #Basophils 0.04 10x3/uL (0.0-0.2); #Eosinophils 0.21 10x3/uL (0.0-0.7); #Monocytes 1.28 10x3/uL (0.11-0.59); #Neutrophils 7.15 10x3/uL (1.40-6.50); %Basophils 0.4 % (0.0-1.0); %Eosinophils 2.2 % (0.0-10.0); %Lymphocytes 9.3 % (21.0-51.0); %Monocytes 13.3 % (0.0-10.0); %Neutrophils 74.3 % (42.0-75.0); Hematocrit 29.0 % (36.0-47.0); Hemoglobin 9.6 g/dL (12.0-16.0); Mean Corpuscular Hemoglobin 29.4 pg (27.0-31.0); Mean Corpuscular Volume 88.7 fL (78.0-98.0); Platelet Count 339 10x3/uL (130-400); Red Blood Cell (RBC) Count 3.27 mill/uL (4.20-5.40); White Blood Cell (WBC) Count 9.62 10x3/uL (4.8-10.8)
[2025-08-29 05:17] LABS: Anion Gap 11 mmol/L (10-20); BUN (Urea Nitrogen) 22 mg/dL (9.8-20.1); Calc. Creatinine Clearance 68 mL/min (70-130); Calcium 8.5 mg/dL (7.8-10.44); Carbon Dioxide 26 mmol/L (23-31); Chloride 102 mmol/L (98-107); Glucose 100 mg/dL (83-110); Potassium 4.4 mmol/L (3.5-5.1); Sodium 135 mmol/L (136-145)
[2025-08-29] MEDS: Sacubitril 24MG/Valsartan 26 MG TAB PO SCH (10:35)
[2025-08-29] MEDS: Pantoprazole 40 MG DR.TAB PO SCH (10:40)
[2025-08-29] MEDS: HYDROcodone/Acetaminophen 10/325 mg Tablet PO PRN (16:45)
[2025-08-30 05:01] LABS: #Basophils 0.04 10x3/uL (0.0-0.2); #Eosinophils 0.49 10x3/uL (0.0-0.7); #Monocytes 0.89 10x3/uL (0.11-0.59); #Neutrophils 6.84 10x3/uL (1.40-6.50); %Basophils 0.4 % (0.0-1.0); %Eosinophils 5.3 % (0.0-10.0); %Lymphocytes 10.1 % (21.0-51.0); %Monocytes 9.6 % (0.0-10.0); %Neutrophils 74.2 % (42.0-75.0); Hematocrit 31.5 % (36.0-47.0); Hemoglobin 10.2 g/dL (12.0-16.0); Mean Corpuscular Hemoglobin 28.6 pg (27.0-31.0); Mean Corpuscular Volume 88.2 fL (78.0-98.0); Platelet Count 388 10x3/uL (130-400); Red Blood Cell (RBC) Count 3.57 mill/uL (4.20-5.40); White Blood Cell (WBC) Count 9.23 10x3/uL (4.8-10.8)
[2025-08-30 05:12] LABS: Anion Gap 13 mmol/L (10-20); BUN (Urea Nitrogen) 12 mg/dL (9.8-20.1); Calc. Creatinine Clearance 70 mL/min (70-130); Calcium 8.7 mg/dL (7.8-10.44); Carbon Dioxide 27 mmol/L (23-31); Chloride 100 mmol/L (98-107); Glucose 107 mg/dL (83-110); Potassium 3.8 mmol/L (3.5-5.1); Sodium 136 mmol/L (136-145)
[2025-08-30] MEDS: Pantoprazole 40 MG DR.TAB PO SCH (08:47)
[2025-08-30] MEDS ORDERED: hydrALAZINE 20 MG/ML VIAL SLOW IVP PRN (14:36)
[2025-08-31 04:56] LABS: #Basophils 0.06 10x3/uL (0.0-0.2); #Eosinophils 0.49 10x3/uL (0.0-0.7); #Monocytes 0.75 10x3/uL (0.11-0.59); #Neutrophils 5.66 10x3/uL (1.40-6.50); %Basophils 0.7 % (0.0-1.0); %Eosinophils 6.1 % (0.0-10.0); %Lymphocytes 13.4 % (21.0-51.0); %Monocytes 9.3 % (0.0-10.0); %Neutrophils 70.0 % (42.0-75.0); Hematocrit 31.6 % (36.0-47.0); Hemoglobin 10.0 g/dL (12.0-16.0); Mean Corpuscular Hemoglobin 29.0 pg (27.0-31.0); Mean Corpuscular Volume 91.6 fL (78.0-98.0); Platelet Count 395 10x3/uL (130-400); Red Blood Cell (RBC) Count 3.45 mill/uL (4.20-5.40); White Blood Cell (WBC) Count 8.08 10x3/uL (4.8-10.8)
[2025-08-31 05:09] LABS: Anion Gap 10 mmol/L (10-20); BUN (Urea Nitrogen) 18 mg/dL (9.8-20.1); Calc. Creatinine Clearance 71 mL/min (70-130); Calcium 8.6 mg/dL (7.8-10.44); Carbon Dioxide 26 mmol/L (23-31); Chloride 99 mmol/L (98-107); Glucose 100 mg/dL (83-110); Potassium 3.4 mmol/L (3.5-5.1); Sodium 132 mmol/L (136-145)
[2025-08-31] MEDS: hydrALAZINE 20 MG/ML VIAL SLOW IVP PRN (13:24)
[2025-08-31 18:47] LABS: Bacteria/HPF 2+ HPF (None Seen); CAUTI Indications for Culture Pelvic or flank pain; Glucose, Urine (Dipstick) Normal (Negative); Leukocyte 500 Leu/uL (Negative); Protein, Urine (Dipstick) Negative (Neg-Trace); RBC/HPF 0-3 HPF (0-3); Specific Gravity, Urine 1.011 (1.002-1.036); WBC/HPF 21-50 HPF (0-3)
[2025-08-31 18:48] LABS: Urine Culture Reflex Yes Yes
[2025-09-01 04:22] LABS: #Basophils 0.06 10x3/uL (0.0-0.2); #Eosinophils 0.35 10x3/uL (0.0-0.7); #Monocytes 0.79 10x3/uL (0.11-0.59); #Neutrophils 7.32 10x3/uL (1.40-6.50); %Basophils 0.6 % (0.0-1.0); %Eosinophils 3.7 % (0.0-10.0); %Lymphocytes 8.9 % (21.0-51.0); %Monocytes 8.4 % (0.0-10.0); %Neutrophils 78.0 % (42.0-75.0); Hematocrit 30.8 % (36.0-47.0); Hemoglobin 9.9 g/dL (12.0-16.0); Mean Corpuscular Hemoglobin 28.8 pg (27.0-31.0); Mean Corpuscular Volume 89.5 fL (78.0-98.0); Platelet Count 386 10x3/uL (130-400); Red Blood Cell (RBC) Count 3.44 mill/uL (4.20-5.40); White Blood Cell (WBC) Count 9.40 10x3/uL (4.8-10.8)
[2025-09-01 04:48] LABS: Anion Gap 10 mmol/L (10-20); BUN (Urea Nitrogen) 15 mg/dL (9.8-20.1); Calc. Creatinine Clearance 74 mL/min (70-130); Calcium 8.5 mg/dL (7.8-10.44); Carbon Dioxide 27 mmol/L (23-31); Chloride 99 mmol/L (98-107); Glucose 94 mg/dL (83-110); Potassium 4.0 mmol/L (3.5-5.1); Sodium 132 mmol/L (136-145)
[2025-09-01] MEDS: Acetaminophen 325 MG TAB PO SCH (12:15)
[2025-09-02] MEDS: diphenhydrAMINE 25 MG CAP PO SCH (01:15)
[2025-09-02 05:15] LABS: Anion Gap 15 mmol/L (10-20); BUN (Urea Nitrogen) 13 mg/dL (9.8-20.1); Calc. Creatinine Clearance 69 mL/min (70-130); Calcium 8.8 mg/dL (7.8-10.44); Carbon Dioxide 24 mmol/L (23-31); Chloride 99 mmol/L (98-107); Glucose 98 mg/dL (83-110); Potassium 4.5 mmol/L (3.5-5.1); Sodium 133 mmol/L (136-145)
[2025-09-02 05:52] LABS: #Basophils 0.04 10x3/uL (0.0-0.2); #Eosinophils 0.45 10x3/uL (0.0-0.7); #Monocytes 0.79 10x3/uL (0.11-0.59); #Neutrophils 6.10 10x3/uL (1.40-6.50); %Basophils 0.5 % (0.0-1.0); %Eosinophils 5.4 % (0.0-10.0); %Lymphocytes 11.2 % (21.0-51.0); %Monocytes 9.5 % (0.0-10.0); %Neutrophils 73.2 % (42.0-75.0); Hematocrit 31.9 % (36.0-47.0); Hemoglobin 10.3 g/dL (12.0-16.0); Mean Corpuscular Hemoglobin 29.1 pg (27.0-31.0); Mean Corpuscular Volume 90.1 fL (78.0-98.0); Platelet Count 400 10x3/uL (130-400); Red Blood Cell (RBC) Count 3.54 mill/uL (4.20-5.40); White Blood Cell (WBC) Count 8.33 10x3/uL (4.8-10.8)
[2025-09-02 05:53] VITALS: BMI 17.9
[2025-09-02 08:05] VITALS: BP 132/76; TEMP 98.1
== END 2025-09-02 10:27 | DRG 25 ==
LOC: ERS 17:49 → CCU 19:54 → IMCU/EMU 08-19 08:18 → 2SE 08-22 17:23 → CCU 08-26 13:44 → 2NO 08-28 16:42
PROVIDERS: ADMIT Surgery; ATTEND Surgery
PROC: 00C43ZZ Extirpation of Matter from Intracranial Subdural Space, Percutaneous Approach (ICD-10-PCS; principal; 2025-08-26)
PROC: 3E033XZ Introduction of Vasopressor into Peripheral Vein, Percutaneous Approach (ICD-10-PCS; 2025-08-26)
PROC: 3E03329 Introduction of Other Anti-infective into Peripheral Vein, Percutaneous Approach (ICD-10-PCS; 2025-08-26)
DX: S06.5XAA Traumatic subdural hemorrhage with loss of consciousness status unknown, initial encounter (principal); G93.5 Compression of brain; N39.0 Urinary tract infection, site not specified; S05.32XA Ocular laceration without prolapse or loss of intraocular tissue, left eye, initial encounter; S82.001A Unspecified fracture of right patella, initial encounter for closed fracture; Z68.1 Body mass index [BMI] 19.9 or less, adult; J45.909 Unspecified asthma, uncomplicated; M81.0 Age-related osteoporosis without current pathological fracture; I10 Essential (primary) hypertension; G89.29 Other chronic pain; M54.50 Low back pain, unspecified; Z96.642 Presence of left artificial hip joint; R40.2360 Coma scale, best motor response, obeys commands, unspecified time; B96.20 Unspecified Escherichia coli [E. coli] as the cause of diseases classified elsewhere; R40.2140 Coma scale, eyes open, spontaneous, unspecified time; R30.0 Dysuria; R40.2250 Coma scale, best verbal response, oriented, unspecified time; W01.0XXA Fall on same level from slipping, tripping and stumbling without subsequent striking against object, initial encounter; Z98.890 Other specified postprocedural states; Z90.710 Acquired absence of both cervix and uterus; I25.2 Old myocardial infarction; Z88.2 Allergy status to sulfonamides; Z88.0 Allergy status to penicillin; Z88.8 Allergy status to other drugs, medicaments and biological substances; Z91.013 Allergy to seafood; Z79.899 Other long term (current) drug therapy; Z79.01 Long term (current) use of anticoagulants; Z90.89 Acquired absence of other organs; Z87.891 Personal history of nicotine dependence
CPT/HCPCS: 36415; 36416; 51702; 70450; 70486; 71045; 71260; 72125; 74177; 80048; 80053; 81001; 81003; 83735; 83930; 83935; 84100; 84300; 85025; 85610; 85730; 86850; 86900; 86901; 87077; 87086; 87186; 88304; 90471; 90715; 93005; 93010; 93970; 94640; 96365; 96367; 96375; G0390; J0360; J1100; J1953; J1956; J2003; J2270; J2272; J2405; J2470; J2704; J3010; J3373; J3430; J3475; J3480; J3490; J7030; J7050; J7168; Q0162; Q9967

== ENCOUNTER 2025-09-16 15:27 | Outpatient (CLI) | payer OTHER | END 2025-09-16 15:28 | disposition home or self-care (01) | LOC: BICCT 15:27 | PROVIDERS: ATTEND Neurological Surgery | DX: S06.5XAA Traumatic subdural hemorrhage with loss of consciousness status unknown, initial encounter (principal) | CPT/HCPCS: 70450 ==

== ENCOUNTER 2025-09-29 19:00 | Emergency (ER) | payer OTHER ==
[2025-09-29] MEDS ORDERED: Acetaminophen 325 MG TAB ONE (20:25)
== END 2025-09-29 23:40 ==
LOC: ERS 19:00
DX: S42.201A Unspecified fracture of upper end of right humerus, initial encounter for closed fracture (principal); M25.552 Pain in left hip; J45.909 Unspecified asthma, uncomplicated; Z87.891 Personal history of nicotine dependence; W05.0XXA Fall from non-moving wheelchair, initial encounter
CPT/HCPCS: 70450; 71045; 72125; 72131; 72170